=== PATIENT | female | born 1990 | race American Indian/Alaskan Native ===

== ENCOUNTER 2017-04-24 11:30 | Emergency (ER) | payer MEDICAID ==
[2017-04-24 13:16] LABS: Anion Gap 18 mmol/L; BUN/Creatinine Ratio 24; Blood Urea Nitrogen 12 mg/dL (7-17); Calcium 9.1 mg/dL (8.4-10.2); Carbon Dioxide 26 mmol/L (22-30); Chloride 101.1 mmol/L (98-107); Glucose 89 mg/dL (65-100); Potassium 4.4 mmol/L (3.6-5.0); Sodium 141 mmol/L (137-145)
[2017-04-24 13:19] LABS: Basophils % (Auto) 0.6 % (0.0-1.8); Hematocrit 36.3 % (30.3-42.9); Mean Corpuscular HGB Conc 33 % (30-34); Mean Corpuscular Hemoglobin 28 pg (28-32); Mean Corpuscular Volume 84 fl (79-97); Platelet Count 306 K/mm3 (140-440); Red Blood Count 4.35 M/mm3 (3.65-5.03); Red Cell Distribution Width 13.9 % (13.2-15.2); White Blood Count 12.8 K/mm3 (4.5-11.0)
[2017-04-24] MEDS ORDERED: ESKALITH PO ONE ×2 (13:53)
[2017-04-24] MEDS ORDERED: GEODON PO ONE (13:54)
[2017-04-24] MEDS ORDERED: MOTRIN PO ONE (13:56)
[2017-04-24 14:07] LABS: Urine Drugs of Abuse Note Disclamer
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
--- NOTE | 2017-04-24 14:15 | Consultation ---
History of Present Illness - Reason for Consult Reason for consult: disorganized Medications and Allergies Allergies Allergy/AdvReac Type Severity Reaction Status Date / Time No Known Allergies Allergy Verified 04/24/17 11:38 Home Medications Medication Instructions Recorded Confirmed Last Taken Type Paliperidone Palmitate (Nf) 156 mg IM Q2W 06/07/15 05/06/16 05/24/15 History [Invega Sustenna (Nf)] Benadryl CAP 50 mg IM HS PRN 05/06/16 05/06/16 Unknown History Wyocena Carbonate 300 mg PO DAILY 05/06/16 05/06/16 Unknown History Wyocena Carbonate 600 mg PO HS 05/06/16 05/06/16 Unknown History Active Meds: Active Medications Ziprasidone (Geodon) 20 mg PO BID CHAI Mental Status Exam - Vital signs Last Vital Signs Temp 97.7 F 04/24/17 11:38 Pulse 99 H 04/24/17 11:38 Resp 18 04/24/17 11:38 BP 168/73 04/24/17 11:38 Pulse Ox 100 04/24/17 11:38 Results Result Diagrams: 04/24/17 11:49 04/24/17 11:49 Abnormal lab results 04/24/17 04/24/17 Range/Units 11:49 11:49 WBC 12.8 H (4.5-11.0) K/mm3 [place] % (Auto) 8.3 H (0.0-7.3) % [place] # 1.1 H (0.0-0.8) K/mm3 Seg Neutrophils % 73.8 H (40.0-70.0) % Seg Neutrophils # 9.5 H (1.8-7.7) K/mm3 Creatinine 0.5 L (0.7-1.2) mg/dL All other labs normal. Assessment and Plan Assessment and plan: CHIEF COMPLAINT IN PATIENTS WORDS: HISTORY OF PRESENT ILLNESS REQUIRING ADMISSION TO INPATIENT LEVEL OF CARE: (Describe the onset of Illness, Intensity of Symptoms, and Circumstances Leading to Admission) This is a 26 year-old domiciled female who reports a formal PPH bipolar disorder now presenting to the ER secondary to disorganized behaviors. On my clinical assessment, patient noted that she has been on intent her medication. Patient notes that she supposed to get a shot of Invega Sustenna as well as lithium, Depakote and Geodon. [place] [facility]. Your doctor contacted the patient's windows phone developer to verify the reason for presentation. PSYCHIATRIC REVIEW OF SYSTEMS: Substance: UDS unavailable Depression: Withdrawn, sad low moods, irritable Dorothea: Periodically irritable Psychosis: + AV, no VH, disorganized, perseverative, paranoid Anxiety/ OCD/ PTSD: Frequent anxiety and worries Suicidality: denies SI Other Self-Injurious Behavior: none currently, no SIB noted recently Violent/ Aggressive Behavior: none noted CURRENT MEDICATIONS: ( Psychiatric and Non-psychiatric ) Medication Reconciliation needs to be completed with windows phone developer or pharmacy ALLERGIES: NKDA PAST PSYCHIATRIC HISTORY: ( Prior Treatment, Precipitating Factors, Diagnosis, and Course of Treatment ) Inpatient: previous IP, but doesn't recall Outpatient: unknown to patient, likely ACT team Prior Suicide Attempts: unknown Prior Self-Injurious Behaviors: Unknown PAST PSYCHIATRIC MEDICATION TRIALS: Geodon, Wyocena, Invega, Depakote MEDICAL HISTORY: (Chronic and Acute Illnesses, Current Medical Treatment, Recent Hospitalizations) Denies Detoxification / Withdrawal: none noted MENTAL STATUS EXAM: General Appearance: Dressed in hospital gown, no acute distress Sensorium/Consciousness: Mostly alert but somewhat sedated Eye Contact: limited Attitude / Behavior: cooperative, but guarded Psychomotor & Musculoskeletal Activity: Psychomotor agitation Mood: Depressed Affect: constricted Speech / Language: Not slurred, reduced spontaneity but fluent when speaking Thought Processes: Perseverative Thought Content: denies SI/HI Perception: no AVH Orientation: person, place, time, situation Judgment What would you do if you smelled smoke in a crowded movie theater?: poor/impulsive Insight: poor Intelligence Vocabulary, general fund of knowledge, educational level: Average Capacity of ADLs: Independent ADMITTING DIAGNOSES Psychiatric: Bipolar disorder most recent episode depressed with psychotic features r/o Schizophrenia Evidence for the following: Medical: n/a INITIAL PLAN OF CARE AND TREATMENT GOALS: Refer for inpatient psychiatric care Start Risperidone and transition to invega when more information is available about last does from windows phone developer
[2017-04-24 14:22] LABS: Bilirubin,Urine NEG (Negative); Blood,Urine NEG (Negative); Ketones,Urine NEG (Negative); Leukocyte Esterase,Urine TR (Negative); Mucus,Urine FEW /HPF; Nitrite,Urine NEG (Negative); Protein,Urine <15 mg/dL mg/dL (Negative)
[2017-04-24] MEDS: RisperDAL PO SCH (21:50)
[2017-04-24] MEDS: ESKALITH PO SCH (21:50)
[2017-04-24] MEDS ORDERED: GEODON PO SCH (22:00)
[2017-04-25] MEDS: ESKALITH PO SCH ×2 (10:29→19:44)
--- NOTE | 2017-04-25 19:37 | Progress Note ---
Subjective - Reason for Consult Consult date: 04/25/17 Reason for consult: psychiatric follow up Mental Status Exam - Vital signs Last Vital Signs Temp 98.4 F 04/25/17 08:07 Pulse 85 04/25/17 08:07 Resp 20 04/25/17 08:09 BP 151/76 04/25/17 08:07 Pulse Ox 99 04/25/17 08:09 Assessment and Plan This is a 26 year-old domiciled female who reports a formal PPH bipolar disorder now presenting to the ER secondary to disorganized behaviors. Patient notes that she supposed to get a shot of Invega Sustenna as well as lithium, Depakote and Geodon. She currently resides in a [facility]. She is perseverative about going home. She denies concerns today. She has not displayed aggressive behaviors. She is maintaining appropriate interaction with peers and staff. She reports having a large appetite and wants double portions. MENTAL STATUS EXAM: General Appearance: Dressed in hospital gown, no acute distress Sensorium/Consciousness: alert Eye Contact: limited Attitude / Behavior: cooperative, but guarded Psychomotor & Musculoskeletal Activity: no abnormal movements Mood: Depressed Affect: constricted Speech / Language: normal rate and tone Thought Processes: Perseverative Thought Content: denies SI/HI Perception: no AVH Orientation: person, place, time, situation Judgment: poor/impulsive Insight: poor Intelligence: Average Capacity of ADLs: Independent ADMITTING DIAGNOSES Psychiatric: Bipolar disorder most recent episode depressed with psychotic features r/o Schizophrenia INITIAL PLAN OF CARE AND TREATMENT GOALS: Refer for inpatient psychiatric care Continue Risperidone and transition to invega when more information is available about last does from email marketing executive
[2017-04-25] MEDS: RisperDAL PO SCH (21:44)
[2017-04-26] MEDS: ESKALITH PO SCH ×2 (10:00→18:43)
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
[2017-04-26] MEDS: RisperDAL PO SCH (22:06)
--- NOTE | 2017-04-27 10:13 | Progress Note ---
Subjective - Reason for Consult Consult date: 04/27/17 Reason for consult: Psychiatry Follow-up - Chief Complaint Chief complaint: "'Can I leave today" This is a 26 year-old domiciled female who reports a formal PPH bipolar disorder now presenting to the ER secondary to disorganized behaviors. Today patient is calm and cooperative during the assessment. She stated that she reside in [place], [place]. Per the staff, no behavioral disturbances overnight. Patient denies SI/HI's and AVH's. She denies any side effects of her medications. Per collateral information from [facility], patient last Invega injection was December 2016. Mental Status Exam - Vital signs Last Vital Signs Temp 98.4 F 04/27/17 08:25 Pulse 86 04/27/17 08:25 Resp 20 04/27/17 08:26 BP 126/84 04/27/17 08:25 Pulse Ox 100 04/27/17 08:26 - Exam Narrative exam: MSE: Appearance: calm, cooperative Behavior: regular eye contact Speech: regular rate and tone Mood: "okay" Affect: congruent to mood Thought Process: linear Thought Content: denies SI/HI's and AVH's Motor Activity: ambulatory Cognition: A/O x3 Insight: fair Judgment: fair Assessment and Plan Impression: Bipolar disorder most recent episode depressed with psychotic features. Today patient is calm and cooperative during the assessment. DDx: R/O Schizophrenia Recommendation/Plan: Rescind 1013. Continue Risperdal 1 mg PO HS for mood, [place] 300 mg PO QAM for mood, and [place] 600 mg PO QPM for mood. Discussed possible metabolic side effects of Risperdal with patient. Per conversation with Estefani Leung her major account representative at [phone], patient can return back to the alf once discharged. Patient can follow up with [facility] ([facility]) for outpatient psy services in [place], [place] at [phone] ext [phone]. This information was passed to her caregiver Estefani Leung.
[2017-04-27] MEDS: ESKALITH PO SCH ×2 (11:12→18:22)
--- NOTE | 2017-04-27 20:39 | Emergency Department Report ---
Blank Doc - Documentation Documentation: Patient has been in the ED for several days and has received multiple psychiatric consultations. Patient is apparently more organized and cooperative and denies suicidal/homicidal ideation and visual hallucinations. 1013 will be presented as per recommendation of psychiatry. Will continue medications as recommended by psych.
[2017-04-27] MEDS: RisperDAL PO SCH (23:05)
[2017-04-28 09:03] VITALS: BP 131/70
[2017-04-28] MEDS: ESKALITH PO SCH (10:02)
--- NOTE | 2017-04-28 22:33 | Progress Note ---
Subjective - Reason for Consult Reason for consult: recent disorganied behaviors Mental Status Exam - Vital signs Last Vital Signs Temp 97.9 F 04/28/17 09:02 Pulse 93 H 04/28/17 09:02 Resp 18 04/28/17 09:02 BP 131/70 04/28/17 09:02 Pulse Ox 97 04/28/17 09:02 Assessment and Plan I. This screening and assessment is based on information collected from the following sources: II. SUICIDE RISK SCREENING (within last 30 days): A.) Suicidal thoughts/behaviors: recent disorganized behaviors SUICIDE RISK ASSESSMENT III. FACTORS THAT INCREASE RISK: A.) Demographic and Substance Use Factors: B.) Current/Recent Factors (within past 3 months): Psychosocial/Environmental Factors: unemployed Physical Illness: None Cognitive/Psychological Factors: chronic mental illness C.) Historical Factors: none D.) Diagnostic/Symptom/Treatment Factors: None E.) Acute Risk Factor Severity (DESC; MILD/MOD/SEVERE) mild Other factors for this individual that increase risk: IV. FACTORS THAT DECREASE RISK: Resilience/Protective Factors: Intermittent psychosocial supports Other factors for this individual that decrease risk: Patient reports he is future oriented and currently denying a desire to harm self. V. Clinician's Formulation of Risk and Determination of level of Care: Patient is having both chronic and acute stressors which have brought him to the ER. Just prior to the ER presentation patient reports feeling overwhelmed and stressed. Since being hospitalized, the patient has consistently denied the desire to harm self. Patient has been in the ER for over 48 hours and has not shown any gestures and consistently denied desire to harm himself. Additionally, patient has become insightful and aware of how to resolve the specific interpersonal conflict they are having. Consequently, it is the opinion of the treatment team that the patient is at low risk at the current time given the above interventions that were implemented in his care. Estimation of Imminent Risk: Low due to the above explanation Determination of Level of Care based on Suicide Risk: Outpatient follow-up. Furthermore, patient has had consistently denied the desire to harm self. Additionally, those thoughts were impulsive and not instrumental in nature to begin with and the patient had no intent or clear plan to execute on those thoughts. Narrative description of clinical reasoning. (This must be completed on all patients): . Plan and Interventions based on Suicide Risk: This patient will likely be stepped down to an outpatient mental health center in the community upon discharge and follow-up within 7 days of his discharge from the hospital. VII. Discharge/After Hours Support Plan: Patient can return back to the ER, call 911 or crisis line if symptoms of depression, anxiety, suicidality return. MENTAL STATUS EXAM: General Appearance: Dressed in hospital gown, no acute distress Sensorium/Consciousness: Mostly alert but somewhat sedated Eye Contact: limited Attitude / Behavior: cooperative, but guarded Psychomotor & Musculoskeletal Activity: wnl Mood: Depressed Affect: constricted Speech / Language: Not slurred, reduced spontaneity but fluent when speaking Thought Processes: Perseverative Thought Content: denies SI/HI Perception: no AVH Orientation: person, place, time, situation Judgment What would you do if you smelled smoke in a crowded movie theater?: improved Insight: improved Intelligence Vocabulary, general fund of knowledge, educational level: Average Capacity of ADLs: Independent ADMITTING DIAGNOSES Psychiatric: Bipolar disorder most recent episode depressed with psychotic features r/o Schizophrenia Evidence for the following: Medical: n/a INITIAL PLAN OF CARE AND TREATMENT GOALS: Outpatient care coordinated and plan has been communicated with the personal senior care [id number]
== END 2017-04-28 15:28 | disposition home or self-care (01) ==
LOC: EEVIPCON 11:30 → ED 11:30
DX: F20.9 Schizophrenia, unspecified (principal); F31.9 Bipolar disorder, unspecified; Z91.14 Patient's other noncompliance with medication regimen; Z87.891 Personal history of nicotine dependence
CPT/HCPCS: 36415; 80048; 80178; 80307; 81001; 84703; 85025; 99284; G0480; 80320

== ENCOUNTER 2017-07-11 16:55 | Emergency (ER) | payer MEDICAID ==
[2017-07-11] MEDS ORDERED: GEODON IM ONE ×2 (17:46→18:16)
[2017-07-11] MEDS ORDERED: WATER FOR INJ (PF) 10 ML ONE (17:47)
[2017-07-11] MEDS ORDERED: ATIVAN ONE ×2 (17:48→18:07)
[2017-07-11] MEDS ORDERED: ATIVAN IM ONE (18:15)
[2017-07-11 19:10] LABS: Basophils # (Auto) 0.1 K/mm3 (0.0-0.1); Basophils % (Auto) 0.8 % (0.0-1.8); Eosinophils # (Auto) 0.2 K/mm3 (0.0-0.4); Eosinophils % (Auto) 1.4 % (0.0-4.3); Hematocrit 39.7 % (30.3-42.9); Hemoglobin 12.3 gm/dl (10.1-14.3); Lymphocytes # (Auto) 2.3 K/mm3 (1.2-5.4); Lymphocytes % (Auto) 20.2 % (13.4-35.0); Mean Corpuscular HGB Conc 31 % (30-34); Mean Corpuscular Hemoglobin 26 pg (28-32); Mean Corpuscular Volume 85 fl (79-97); Monocytes # (Auto) 0.8 K/mm3 (0.0-0.8); Monocytes % (Auto) 6.6 % (0.0-7.3); Platelet Count 303 K/mm3 (140-440); Red Blood Count 4.66 M/mm3 (3.65-5.03); Red Cell Distribution Width 13.6 % (13.2-15.2)
[2017-07-11 19:32] LABS: Alanine Aminotransferase 49 units/L (7-56); Albumin 4.3 g/dL (3.9-5); BUN/Creatinine Ratio 23; Blood Urea Nitrogen 14 mg/dL (7-17); Calcium 9.6 mg/dL (8.4-10.2); Hemolysis Index 4
--- NOTE | 2017-07-11 19:52 | Emergency Department Report ---
ED Psych HPI - General Chief Complaint: Psych Stated Complaint: PSYCH MEDS Time Seen by Provider: 07/11/17 19:37 Source: family, EMS Mode of arrival: Ambulatory - History of Present Illness Initial Comments: Patient is a 27-year-old female who had past history of bipolar disorder who was sent in from her group all for behavior issues. Patient states that she one of her nurses is is jealous of her and states that she is not taking her medications when she states that she is. Patient has received a dose of Ativan and Geodon before her arrival. Patient states she feels better currently. Patient denies any homicidal suicidal ideations or any pain - Related Data Home Medications Medication Instructions Recorded Confirmed Last Taken Paliperidone Palmitate (Nf) 156 mg IM Q2W 06/07/15 04/24/17 05/24/15 [Invega Sustenna (Nf)] Benadryl CAP 50 mg IM HS PRN 05/06/16 04/24/17 Unknown [place] Carbonate 300 mg PO DAILY 05/06/16 04/24/17 Unknown [place] Carbonate 600 mg PO HS 05/06/16 04/24/17 Unknown Previous Rx's Medication Instructions Recorded Last Taken Type [place] Carbonate [Eskalith] 300 mg PO QAM #30 capsule 04/27/17 Unknown Rx [place] Carbonate [Eskalith] 600 mg PO QPM #30 capsule 04/27/17 Unknown Rx risperiDONE [RisperDAL] 1 mg PO QHS #30 tablet 04/27/17 Unknown Rx Allergies Allergy/AdvReac Type Severity Reaction Status Date / Time No Known Allergies Allergy Verified 04/24/17 11:38 ED Review of Systems ROS: Stated complaint: PSYCH MEDS Other details as noted in HPI Comment: All other systems reviewed and negative ED Past Medical Hx - Past Medical History Hx Psychiatric Treatment: Yes ([facility]) - Surgical History Past Surgical History?: No - Social History Smoking Status: Never Smoker Substance Use Type: Prescribed - Medications Home Medications: Home Medications Medication Instructions Recorded Confirmed Last Taken Type Paliperidone Palmitate (Nf) 156 mg IM Q2W 06/07/15 04/24/17 05/24/15 History [Invega Sustenna (Nf)] Benadryl CAP 50 mg IM HS PRN 05/06/16 04/24/17 Unknown History [place] Carbonate 300 mg PO DAILY 05/06/16 04/24/17 Unknown History [place] Carbonate 600 mg PO HS 05/06/16 04/24/17 Unknown History [place] Carbonate [Eskalith] 300 mg PO QAM #30 capsule 04/27/17 Unknown Rx [place] Carbonate [Eskalith] 600 mg PO QPM #30 capsule 04/27/17 Unknown Rx risperiDONE [RisperDAL] 1 mg PO QHS #30 tablet 04/27/17 Unknown Rx ED Physical Exam - General Limitations: No Limitations General appearance: alert, in no apparent distress - Head Head exam: Present: atraumatic, normocephalic - Eye Eye exam: Present: normal appearance - ENT ENT exam: Present: mucous membranes moist - Neck Neck exam: Present: normal inspection - Respiratory Respiratory exam: Present: normal lung sounds bilaterally. Absent: respiratory distress - Cardiovascular Cardiovascular Exam: Present: regular rate, normal rhythm. Absent: systolic murmur, diastolic murmur, rubs, gallop - GI/Abdominal GI/Abdominal exam: Present: soft, normal bowel sounds - Extremities Exam Extremities exam: Present: normal inspection - Back Exam Back exam: Present: normal inspection - Neurological Exam Neurological exam: Present: alert, oriented X3 - Psychiatric Psychiatric exam: Present: normal affect, normal mood - Skin Skin exam: Present: warm, dry, intact, normal color. Absent: rash ED Course Vital Signs 07/11/17 17:16 Temperature 97.8 F Pulse Rate 111 H Respiratory 18 Rate Blood Pressure 142/81 [Right] O2 Sat by Pulse 98 Oximetry ED Medical Decision Making - Lab Data Result diagrams: 07/11/17 18:41 07/11/17 18:41 Critical care attestation.: If time is entered above; I have spent that time in minutes in the direct care of this critically ill patient, excluding procedure time. ED Disposition Condition: Stable Referrals: ZACK HENDERSON MD [Primary Care Provider] - 3-5 Days
[2017-07-11 20:40] LABS: Bacteria,Urine 1+ /HPF (Negative); Bilirubin,Urine NEG (Negative); Blood,Urine NEG (Negative); Color,Urine Straw (Yellow); Mucus,Urine FEW /HPF; Nitrite,Urine NEG (Negative); Protein,Urine <15 mg/dL mg/dL (Negative); Urobilinogen,Urine < 2.0 mg/dL (<2.0)
[2017-07-11 20:45] LABS: Amphetamine Screen,Urine PRESUMPTIVE NEGATIVE; Benzodiazepines Screen,Urine PRESUMPTIVE NEGATIVE; Cannabinoid Screen,Urine PRESUMPTIVE NEGATIVE; Cocaine Screen,Urine PRESUMPTIVE NEGATIVE; Methadone Screen,Urine PRESUMPTIVE NEGATIVE; Opiate Screen,Urine PRESUMPTIVE NEGATIVE
--- NOTE | 2017-07-12 12:42 | Consultation ---
History of Present Illness - Reason for Consult Consult date: 07/12/17 Reason for consult: Mental Health Evaluation Requesting physician: FRANKLIN RAY - Chief Complaint Chief complaint: "I was upset" - History of Present Psychiatric Illness Patient is a 27-year-old female who had past history of bipolar disorder who was sent in from her group all for behavior issues. Today patient is calm and cooperative during the assessment. She stated that she got upset at her care home and decided to come to the hospital to calm down. Per collateral information from Estefani at [phone] the patient airport ramp attendant, she stated that the patient got upset because she could not cook all the food. She stated that the patient does not like to hear the word "No." She denies that the patient was SI/HI before she left the care home. The patient stated that she receives the monthly Invega injection for Bipolar DO from [facility] ([facility]). Per a rep from [facility], the patient received her last injection 2 weeks ago. Per the staff, no behavioral disturbance overnight nor this shift. She denies SI /HI's and AVH's. She denies any manic episodes, poor appetite, and sleep disturbance. She denies recreational drug use and alcohol consumption (etoh). Medications and Allergies Allergies Allergy/AdvReac Type Severity Reaction Status Date / Time No Known Allergies Allergy Verified 04/24/17 11:38 Home Medications Medication Instructions Recorded Confirmed Last Taken Type Paliperidone Palmitate (Nf) 156 mg IM Q2W 06/07/15 04/24/17 05/24/15 History [Invega Sustenna (Nf)] Benadryl CAP 50 mg IM HS PRN 05/06/16 04/24/17 Unknown History [place] Carbonate 300 mg PO DAILY 05/06/16 04/24/17 Unknown History [place] Carbonate 600 mg PO HS 05/06/16 04/24/17 Unknown History [place] Carbonate [Eskalith] 300 mg PO QAM #30 capsule 04/27/17 Unknown Rx [place] Carbonate [Eskalith] 600 mg PO QPM #30 capsule 04/27/17 Unknown Rx risperiDONE [RisperDAL] 1 mg PO QHS #30 tablet 04/27/17 Unknown Rx Past psychiatric history - Past Medical History Past Medical History: No medical history Past Surgical History: No surgical history - past Psychiatric treatment and history Psych: Bipolar psychiatric treatment history: Patient seen out patient by [facility] ([facility]). Patient denies a fam psy hx. - Social History Social history: other (Reside at a care home) Mental Status Exam - Vital signs Last Vital Signs Temp 98 F 07/11/17 20:01 Pulse 88 07/12/17 00:00 Resp 18 07/12/17 00:00 BP 134/88 07/12/17 00:00 Pulse Ox 99 07/12/17 00:00 - Exam Narrative exam: MSE: Appearance: calm, cooperative Behavior: good eye contact Speech: regular rate and tone Mood: "okay" Affect: congruent to mood Thought Process: linear Thought Content: denies SI/HI's and AVH's Motor Activity: ambulatory Cognition: A/O x 3 Insight: fair Judgment: fair Results Result Diagrams: 07/11/17 18:41 07/11/17 18:41 Abnormal lab results 07/11/17 07/11/17 07/11/17 Range/Units 18:41 18:41 18:41 WBC 11.5 H (4.5-11.0) K/mm3 MCH 26 L (28-32) pg Seg Neutrophils % 71.0 H (40.0-70.0) % Seg Neutrophils # 8.2 H (1.8-7.7) K/mm3 Chloride 97.3 L (98-107) mmol/L Creatinine 0.6 L (0.7-1.2) mg/dL Glucose 116 H (65-100) mg/dL Salicylates < 0.3 L (2.8-20.0) mg/dL All other labs normal. Assessment and Plan Assessment and plan: Impression: Hx of Bipolar DO. Today patient is calm and cooperative during the assessment. Recommendation/Plan: Patient can follow-up with [facility] for outpatient psy services. Patient does not need any prescriptions once discharged.
[2017-07-12 18:48] VITALS: BP 128/74
== END 2017-07-12 18:55 | disposition home or self-care (01) ==
LOC: ED 16:55 → EEVIPCON 16:55 → ED 07-12 18:55
DX: F31.9 Bipolar disorder, unspecified (principal)
CPT/HCPCS: 36415; 80053; 80178; 80307; 81001; 84703; 85025; 96372; 99283; G0480; J2060; J3486; 80320

== ENCOUNTER 2017-08-05 16:44 | Emergency (ER) | payer MEDICAID ==
[2017-08-05 17:39] LABS: Basophils # (Auto) 0.1 K/mm3 (0.0-0.1); Basophils % (Auto) 0.7 % (0.0-1.8); Eosinophils # (Auto) 0.1 K/mm3 (0.0-0.4); Eosinophils % (Auto) 1.1 % (0.0-4.3); Hematocrit 42.2 % (30.3-42.9); Hemoglobin 13.3 gm/dl (10.1-14.3); Lymphocytes % (Auto) 20.5 % (13.4-35.0); Mean Corpuscular HGB Conc 32 % (30-34); Mean Corpuscular Hemoglobin 27 pg (28-32); Mean Corpuscular Volume 85 fl (79-97); Monocytes # (Auto) 0.4 K/mm3 (0.0-0.8); Monocytes % (Auto) 3.9 % (0.0-7.3); Platelet Count 304 K/mm3 (140-440); Red Blood Count 4.98 M/mm3 (3.65-5.03); Red Cell Distribution Width 13.4 % (13.2-15.2)
[2017-08-05 17:56] LABS: BUN/Creatinine Ratio 17; Blood Urea Nitrogen 10 mg/dL (7-17); Calcium 9.4 mg/dL (8.4-10.2); Hemolysis Index 26
--- NOTE | 2017-08-05 18:32 | Emergency Department Report ---
ED Psych HPI - General Chief Complaint: Psych Stated Complaint: MH/101 Time Seen by Provider: 08/05/17 17:09 Source: patient Mode of arrival: Ambulatory - History of Present Illness Initial Comments: She is a 27-year-old Female with a past medical history of schizophrenia and bipolar disorder who is presenting with tear was to call's and homicidal ideations. Patient is at a group called and got into an argument with the senior living. Patient's caregiver wanted her to be evaluated here in emergency department for violent outbreaks. Patient initially stated that she just wanted to go to the police department and press charges and that she wanted to go home and was not homicidal or suicidal however the patient then as stated "I want to go back to the home and is gonna be round two". Patient denies any hallucinations or suicidal thoughts. - Related Data Home Medications Medication Instructions Recorded Confirmed Last Taken Paliperidone Palmitate (Nf) 156 mg IM Q2W 06/07/15 04/24/17 05/24/15 [Invega Sustenna (Nf)] Benadryl CAP 50 mg IM HS PRN 05/06/16 04/24/17 Unknown [place] Carbonate 300 mg PO DAILY 05/06/16 04/24/17 Unknown [place] Carbonate 600 mg PO HS 05/06/16 04/24/17 Unknown Previous Rx's Medication Instructions Recorded Last Taken Type [place] Carbonate [Eskalith] 300 mg PO QAM #30 capsule 04/27/17 Unknown Rx [place] Carbonate [Eskalith] 600 mg PO QPM #30 capsule 04/27/17 Unknown Rx risperiDONE [RisperDAL] 1 mg PO QHS #30 tablet 04/27/17 Unknown Rx Allergies Allergy/AdvReac Type Severity Reaction Status Date / Time No Known Allergies Allergy Verified 04/24/17 11:38 ED Review of Systems ROS: Stated complaint: Other details as noted in HPI Comment: All other systems reviewed and negative ED Past Medical Hx - Past Medical History Hx Psychiatric Treatment: Yes ([facility]) - Social History Smoking Status: Former Smoker Substance Use Type: Prescribed - Medications Home Medications: Home Medications Medication Instructions Recorded Confirmed Last Taken Type Paliperidone Palmitate (Nf) 156 mg IM Q2W 06/07/15 04/24/17 05/24/15 History [Invega Sustenna (Nf)] Benadryl CAP 50 mg IM HS PRN 05/06/16 04/24/17 Unknown History [place] Carbonate 300 mg PO DAILY 05/06/16 04/24/17 Unknown History [place] Carbonate 600 mg PO HS 05/06/16 04/24/17 Unknown History [place] Carbonate [Eskalith] 300 mg PO QAM #30 capsule 04/27/17 Unknown Rx [place] Carbonate [Eskalith] 600 mg PO QPM #30 capsule 04/27/17 Unknown Rx risperiDONE [RisperDAL] 1 mg PO QHS #30 tablet 04/27/17 Unknown Rx ED Physical Exam - General Limitations: No Limitations General appearance: alert, in no apparent distress, other (pressured speech) - Head Head exam: Present: atraumatic, normocephalic - Eye Eye exam: Present: normal appearance - ENT ENT exam: Present: mucous membranes moist - Neck Neck exam: Present: normal inspection - Respiratory Respiratory exam: Present: normal lung sounds bilaterally. Absent: respiratory distress, wheezes, rales, rhonchi - Cardiovascular Cardiovascular Exam: Present: regular rate, normal rhythm. Absent: systolic murmur, diastolic murmur, rubs, gallop - GI/Abdominal GI/Abdominal exam: Present: soft, normal bowel sounds. Absent: distended, tenderness, guarding - Extremities Exam Extremities exam: Present: normal inspection - Back Exam Back exam: Present: normal inspection - Neurological Exam Neurological exam: Present: alert, oriented X3 - Psychiatric Psychiatric exam: Present: normal affect, normal mood - Skin Skin exam: Present: warm, dry, intact, normal color. Absent: rash ED Course Vital Signs 08/05/17 08/05/17 17:09 18:04 Temperature 98.6 F Pulse Rate 112 H Respiratory 20 Rate Blood Pressure 156/89 O2 Sat by Pulse 97 98 Oximetry ED Medical Decision Making - Lab Data Result diagrams: 08/05/17 17:19 08/05/17 17:19 - Medical Decision Making Patient is a 27-year-old female who is having homicidal ideations as well as pressured speech and kartik patient will be evaluated by mental health and sent to a psych facility Critical care attestation.: If time is entered above; I have spent that time in minutes in the direct care of this critically ill patient, excluding procedure time. ED Disposition Clinical Impression: Homicidal ideation, Kartik Disposition: [id number]/[facility] PSY HOSP/PSY UNIT Is pt being admited?: No Does the pt Need Aspirin: No Condition: Stable Referrals: PRIMARY CARE, [Primary Care Provider] - 3-5 Days
[2017-08-05 21:05] LABS: Bilirubin,Urine NEG (Negative); Blood,Urine NEG (Negative); Color,Urine Yellow (Yellow); Mucus,Urine FEW /HPF; Nitrite,Urine NEG (Negative); Protein,Urine <15 mg/dL mg/dL (Negative)
[2017-08-05 21:32] LABS: Amphetamine Screen,Urine PRESUMPTIVE NEGATIVE; Benzodiazepines Screen,Urine PRESUMPTIVE NEGATIVE; Cannabinoid Screen,Urine PRESUMPTIVE NEGATIVE; Cocaine Screen,Urine PRESUMPTIVE NEGATIVE; Methadone Screen,Urine PRESUMPTIVE NEGATIVE; Opiate Screen,Urine PRESUMPTIVE NEGATIVE
[2017-08-06 08:33] VITALS: BP 143/74
== END 2017-08-06 08:36 ==
LOC: ED 16:44 → EEVIPCON 16:44 → ED 08-06 08:36
DX: R45.850 Homicidal ideations (principal); F30.9 Manic episode, unspecified; F20.9 Schizophrenia, unspecified
CPT/HCPCS: 36415; 80048; 80307; 81001; 84703; 85025; 99285; G0480; 80320

== ENCOUNTER 2017-09-15 14:36 | Emergency (ER) | payer MEDICAID | END 2017-09-15 15:12 | disposition left against medical advice (07) | LOC: ED 14:36 | DX: I10 Essential (primary) hypertension (principal); Z53.21 Procedure and treatment not carried out due to patient leaving prior to being seen by health care provider ==

== ENCOUNTER 2017-10-21 19:51 | Emergency (ER) | payer MEDICAID ==
--- NOTE | 2017-10-21 21:30 | Emergency Department Report ---
ED Psych HPI - General Chief Complaint: Psych Stated Complaint: MH EVAL Time Seen by Provider: 10/21/17 20:21 Source: patient, EMS Mode of arrival: Ambulatory - History of Present Illness Initial Comments: Patient is 27 years old female, history of schizophrenia and bipolar. Patient live in a [facility]. Patient refused to take her psychiatric medication and she made threats to the group sales representative that she is going to kill everyone. When I question outpatient denied saying that and she stated that her group worker want to get red of her so she can get her . Patient denied any suicidal or homicidal ideation at this moment. She denied unnecessary and visual hallucination. - Related Data Home Medications Medication Instructions Recorded Confirmed Last Taken Paliperidone Palmitate (Nf) 156 mg IM Q2W 06/07/15 08/05/17 05/24/15 [Invega Sustenna (Nf)] Benadryl CAP 50 mg IM HS PRN 05/06/16 08/05/17 Unknown [place] Carbonate 300 mg PO DAILY 05/06/16 08/05/17 Unknown [place] Carbonate 600 mg PO HS 05/06/16 08/05/17 Unknown Previous Rx's Medication Instructions Recorded Last Taken Type [place] Carbonate [Eskalith] 300 mg PO QAM #30 capsule 04/27/17 Unknown Rx [place] Carbonate [Eskalith] 600 mg PO QPM #30 capsule 04/27/17 Unknown Rx risperiDONE [RisperDAL] 1 mg PO QHS #30 tablet 04/27/17 Unknown Rx Allergies Allergy/AdvReac Type Severity Reaction Status Date / Time No Known Allergies Allergy Verified 04/24/17 11:38 ED Review of Systems ROS: Stated complaint: EVAL Other details as noted in HPI Comment: All other systems reviewed and negative Constitutional: denies: chills, fever Respiratory: denies: cough, orthopnea, shortness of breath, SOB with exertion Cardiovascular: denies: chest pain, palpitations, dyspnea on exertion ED Past Medical Hx - Past Medical History Hx Psychiatric Treatment: Yes ([facility]) - Social History Smoking Status: Former Smoker - Medications Home Medications: Home Medications Medication Instructions Recorded Confirmed Last Taken Type Paliperidone Palmitate (Nf) 156 mg IM Q2W 06/07/15 08/05/17 05/24/15 History [Invega Sustenna (Nf)] Benadryl CAP 50 mg IM HS PRN 05/06/16 08/05/17 Unknown History [place] Carbonate 300 mg PO DAILY 05/06/16 08/05/17 Unknown History [place] Carbonate 600 mg PO HS 05/06/16 08/05/17 Unknown History [place] Carbonate [Eskalith] 300 mg PO QAM #30 capsule 04/27/17 08/05/17 Unknown Rx [place] Carbonate [Eskalith] 600 mg PO QPM #30 capsule 04/27/17 08/05/17 Unknown Rx risperiDONE [RisperDAL] 1 mg PO QHS #30 tablet 04/27/17 08/05/17 Unknown Rx ED Physical Exam - General Limitations: No Limitations General appearance: alert, anxious - Head Head exam: Present: atraumatic, normocephalic, normal inspection - Eye Eye exam: Present: normal appearance, PERRL - ENT ENT exam: Present: normal exam, normal orophraynx - Neck Neck exam: Present: normal inspection - Respiratory Respiratory exam: Present: normal lung sounds bilaterally - Cardiovascular Cardiovascular Exam: Present: regular rate, normal rhythm, normal heart sounds - GI/Abdominal GI/Abdominal exam: Present: soft, normal bowel sounds. Absent: distended, tenderness, guarding, rebound, rigid, organomegaly, mass, bruit, pulsatile mass - Extremities Exam Extremities exam: Present: normal inspection, full ROM, normal capillary refill - Back Exam Back exam: Present: normal inspection, full ROM. Absent: CVA tenderness (R), CVA tenderness (L), muscle spasm, paraspinal tenderness - Neurological Exam Neurological exam: Present: alert, oriented X3, CN II-XII intact, normal gait - Psychiatric Psychiatric exam: Present: agitated, anxious, manic. Absent: homicidal ideation , suicidal ideation - Skin Skin exam: Present: warm ED Course Vital Signs 10/21/17 20:14 Temperature 98.1 F Pulse Rate 102 H Respiratory 18 Rate Blood Pressure 145/85 O2 Sat by Pulse 99 Oximetry ED Medical Decision Making - Lab Data Result diagrams: 10/21/17 21:19 10/21/17 21:19 Critical care attestation.: If time is entered above; I have spent that time in minutes in the direct care of this critically ill patient, excluding procedure time. ED Disposition Clinical Impression: Acute psychosis, Homicidal ideation Disposition: [id number]/[id number] PSY HOSP/PSY UNIT Is pt being admited?: No Condition: Stable Additional Instructions: Patient is medically clear to be admitted to inpatient psychiatric facility. Referrals: ZACK HENDERSON MD [Primary Care Provider] - 3-5 Days
[2017-10-21 21:35] LABS: Basophils # (Auto) 0.1 K/mm3 (0.0-0.1); Basophils % (Auto) 0.7 % (0.0-1.8); Eosinophils # (Auto) 0.1 K/mm3 (0.0-0.4); Eosinophils % (Auto) 1.2 % (0.0-4.3); Hematocrit 37.1 % (30.3-42.9); Hemoglobin 11.9 gm/dl (10.1-14.3); Mean Corpuscular HGB Conc 32 % (30-34); Mean Corpuscular Hemoglobin 28 pg (28-32); Mean Corpuscular Volume 86 fl (79-97); Monocytes % (Auto) 8.7 % (0.0-7.3); Platelet Count 280 K/mm3 (140-440); Red Blood Count 4.29 M/mm3 (3.65-5.03); Red Cell Distribution Width 15.1 % (13.2-15.2)
[2017-10-21 21:46] LABS: Alanine Aminotransferase 20 units/L (7-56); Albumin 3.7 g/dL (3.9-5); BUN/Creatinine Ratio 23; Blood Urea Nitrogen 16 mg/dL (7-17); Hemolysis Index 14
[2017-10-21 22:05] LABS: Bacteria,Urine 1+ /HPF (Negative); Bilirubin,Urine NEG (Negative); Blood,Urine NEG (Negative); Color,Urine Yellow (Yellow); Mucus,Urine 3+ /HPF; Protein,Urine <15 mg/dL mg/dL (Negative)
[2017-10-21 22:07] LABS: Amphetamine Screen,Urine PRESUMPTIVE NEGATIVE; Benzodiazepines Screen,Urine PRESUMPTIVE NEGATIVE; Cannabinoid Screen,Urine PRESUMPTIVE NEGATIVE; Cocaine Screen,Urine PRESUMPTIVE NEGATIVE; Methadone Screen,Urine PRESUMPTIVE NEGATIVE; Opiate Screen,Urine PRESUMPTIVE NEGATIVE
[2017-10-22 11:02] VITALS: BP 125/80
== END 2017-10-22 10:00 ==
LOC: ED 19:51
DX: F23 Brief psychotic disorder (principal); R45.850 Homicidal ideations
CPT/HCPCS: 36415; 80053; 80307; 81001; 84703; 85025; 99285; G0480; 80320

== ENCOUNTER 2019-01-31 10:11 | Inpatient (IN) | payer MEDICAID ==
[2019-01-31] MEDS ORDERED: NACL 0.9% 1000 ML 1,000 ML IV ONE ×2 (10:42→12:20)
[2019-01-31 11:23] LABS: Basophils % (Auto) 0.4 % (0.0-1.8); Eosinophils % (Auto) 0.4 % (0.0-4.3); Hemoglobin 12.5 gm/dl (10.1-14.3); Lymphocytes # (Auto) 1.7 K/mm3 (1.2-5.4); Lymphocytes % (Auto) 16.5 % (13.4-35.0); Mean Corpuscular HGB Conc 33 % (30-34); Mean Corpuscular Volume 90 fl (79-97); Monocytes # (Auto) 1.1 K/mm3 (0.0-0.8); Monocytes % (Auto) 10.4 % (0.0-7.3); Platelet Count 183 K/mm3 (140-440); Red Cell Distribution Width 14.6 % (13.2-15.2)
[2019-01-31 11:41] LABS: BUN/Creatinine Ratio 14; Blood Urea Nitrogen 7 mg/dL (7-17); Calcium 9.5 mg/dL (8.4-10.2); Hemolysis Index 93
[2019-01-31 11:47] LABS: Bilirubin,Urine NEG (Negative); Blood,Urine NEG (Negative); Color,Urine Amber (Yellow); Mucus,Urine 1+ /HPF; Protein,Urine <15 mg/dL mg/dL (Negative)
[2019-01-31 11:54] LABS: Amphetamine Screen,Urine PRESUMPTIVE NEGATIVE; Benzodiazepines Screen,Urine PRESUMPTIVE NEGATIVE; Cannabinoid Screen,Urine PRESUMPTIVE NEGATIVE; Cocaine Screen,Urine PRESUMPTIVE NEGATIVE; Methadone Screen,Urine PRESUMPTIVE NEGATIVE; Opiate Screen,Urine PRESUMPTIVE NEGATIVE
--- NOTE | 2019-01-31 12:21 | Emergency Department Report ---
ED Altered Mental Status HPI - General Chief Complaint: Weakness Stated Complaint: FATIGUE/BODY PAIN Time Seen by Provider: 01/31/19 10:36 Source: patient Mode of arrival: Ambulatory Limitations: No Limitations - History of Present Illness Initial Comments: Gerri is a 28-year-old female with history of bipolar disorder, schizophrenia who presents from residential personal home with altered mental status. Yesterday she was evaluated for symptoms related to flulike illness. After coming home from school yesterday, she appeared dazed out of it lethargic. She is normally quite verbal. However she at this time is nonverbal. She appears lethargic. Caregiver at the bedside states that she's had diarrhea body aches and productive cough. No changes in her medications. Caregiver has taken care of Mrs. Bravo for the past 2 years. Medications are locked. Her caregiver administers all her medications. No new changes in her medications. There are 2 sick contacts in the residential home with similar symptoms diarrhea malaise bodyaches cough, Including her roommate. Home medications, [place] Risperidone InVega Valproic acid Benztrtessieine Complaint: altered mental status, confusion, decreased responsiveness -: Gradual, days(s) (1) Severity: severe Consistency of Symptoms: getting worse - Related Data Home Medications Medication Instructions Recorded Confirmed Last Taken Paliperidone Palmitate (Nf) 156 mg IM Q2W 06/07/15 01/31/19 05/24/15 [Invega Sustenna (Nf)] Benztropine [Cogentin] 0.5 mg PO BID 01/31/19 01/31/19 Unknown Divalproex ER [DepaKOTE ER] 500 mg PO QDAY 01/31/19 01/31/19 Unknown [place] Carbonate [Eskalith] 450 mg PO QAM 01/31/19 01/31/19 Unknown risperiDONE [RisperDAL] 3 mg PO QHS 01/31/19 01/31/19 Unknown Allergies Allergy/AdvReac Type Severity Reaction Status Date / Time No Known Allergies Allergy Verified 04/24/17 11:38 ED Review of Systems ROS: Stated complaint: FATIGUE/BODY PAIN Other details as noted in HPI Comment: Unobtainable due to pts medical conditions (altered mental status) ED Past Medical Hx - Past Medical History Previous Medical History?: Yes Hx Psychiatric Treatment: Yes (Schizophrenia, BiPolar) - Surgical History Past Surgical History?: No - Social History Smoking Status: Smoker, Current Status Unknown Substance Use Type: None - Medications Home Medications: Home Medications Medication Instructions Recorded Confirmed Last Taken Type Paliperidone Palmitate (Nf) 156 mg IM Q2W 06/07/15 01/31/19 05/24/15 History [Invega Sustenna (Nf)] Benztropine [Cogentin] 0.5 mg PO BID 01/31/19 01/31/19 Unknown History Divalproex ER [DepaKOTE ER] 500 mg PO QDAY 01/31/19 01/31/19 Unknown History [place] Carbonate [Eskalith] 450 mg PO QAM 01/31/19 01/31/19 Unknown History risperiDONE [RisperDAL] 3 mg PO QHS 01/31/19 01/31/19 Unknown History ED Physical Exam - General Limitations: No Limitations General appearance: alert, lethargic, other (maintaining airway, purposeful movement, only moans and grunts will not speak) - Head Head exam: Present: atraumatic, normocephalic - Eye Eye exam: Present: normal appearance - ENT ENT exam: Present: mucous membranes moist - Neck Neck exam: Present: normal inspection, full ROM - Respiratory Respiratory exam: Present: normal lung sounds bilaterally. Absent: respiratory distress, wheezes, rales, rhonchi - Cardiovascular Cardiovascular Exam: Present: regular rate, normal rhythm, normal heart sounds. Absent: systolic murmur, diastolic murmur, rubs, gallop - GI/Abdominal GI/Abdominal exam: Present: soft, normal bowel sounds. Absent: distended, tenderness, guarding - Extremities Exam Extremities exam: Present: normal inspection - Back Exam Back exam: Present: normal inspection - Neurological Exam Neurological exam: Present: alert, oriented X3 - Psychiatric Psychiatric exam: Present: normal affect, normal mood - Skin Skin exam: Present: warm, dry, intact, normal color. Absent: rash ED Course Vital Signs 01/31/19 01/31/19 01/31/19 10:22 11:11 11:16 Temperature 98.4 F Pulse Rate 77 78 Respiratory 12 12 Rate Blood Pressure 127/82 138/91 138/91 O2 Sat by Pulse 99 96 Oximetry 01/31/19 01/31/19 01/31/19 11:30 11:50 12:00 Temperature Pulse Rate 78 78 76 Respiratory 11 L 13 Rate Blood Pressure 138/91 154/81 154/81 O2 Sat by Pulse 100 Oximetry 01/31/19 13:02 Temperature Pulse Rate 77 Respiratory 23 Rate Blood Pressure 142/76 O2 Sat by Pulse 93 Oximetry - Lab Data Result diagrams: 01/31/19 10:49 01/31/19 10:49 Lab Results 01/31/19 01/31/19 01/31/19 Range/Units 10:49 10:49 10:49 WBC 10.1 (4.5-11.0) K/mm3 RBC 4.20 (3.65-5.03) M/mm3 Hgb 12.5 (10.1-14.3) gm/dl Hct 38.0 (30.3-42.9) % MCV 90 (79-97) fl MCH 30 (28-32) pg MCHC 33 (30-34) % RDW 14.6 (13.2-15.2) % Plt Count 183 (140-440) K/mm3 Lymph % (Auto) 16.5 (13.4-35.0) % [place] % (Auto) 10.4 H (0.0-7.3) % Eos % (Auto) 0.4 (0.0-4.3) % Baso % (Auto) 0.4 (0.0-1.8) % Lymph # 1.7 (1.2-5.4) K/mm3 [place] # 1.1 H (0.0-0.8) K/mm3 Eos # 0.0 (0.0-0.4) K/mm3 Baso # 0.0 (0.0-0.1) K/mm3 Seg Neutrophils % 72.3 H (40.0-70.0) % Seg Neutrophils # 7.3 (1.8-7.7) K/mm3 POC ABG pH (7.35-7.45) POC ABG pCO2 (35-45) POC ABG pO2 (80-105) POC ABG HCO3 (22-26 mml/L) POC ABG Total CO2 (23-27mmol/L) POC ABG O2 Sat POC ABG Base Excess ((-2) - (+3)mmol/L) FiO2 % Sodium 136 L (137-145) mmol/L Potassium 5.0 (3.6-5.0) mmol/L Chloride 100.8 (98-107) mmol/L Carbon Dioxide 25 (22-30) mmol/L Anion Gap 15 mmol/L BUN 7 (7-17) mg/dL Creatinine 0.5 L (0.7-1.2) mg/dL Estimated GFR > 60 ml/min BUN/Creatinine Ratio 14 % Glucose 85 (65-100) mg/dL POC Glucose (70-105) Lactic Acid (0.7-2.0) mmol/L Calcium 9.5 (8.4-10.2) mg/dL Ammonia (25-60) umol/L Troponin T (0.00-0.029) ng/mL TSH (0.270-4.200) mlU/mL Urine Color (Yellow) Urine Turbidity (Clear) Urine pH (5.0-7.0) Ur Specific [place] (1.003-1.030) Urine Protein (Negative) mg/dL Urine Glucose (UA) (Negative) mg/dL Urine Ketones (Negative) mg/dL Urine Blood (Negative) Urine Nitrite (Negative) Urine Bilirubin (Negative) Urine Urobilinogen (<2.0) mg/dL Ur Leukocyte Esterase (Negative) Urine WBC (Auto) (0.0-6.0) /HPF Urine RBC (Auto) (0.0-6.0) /HPF U Epithel Cells (Auto) (0-13.0) /HPF Urine Mucus /HPF Salicylates < 0.3 L (2.8-20.0) mg/dL Urine Opiates Screen Urine Methadone Screen Acetaminophen (10.0-30.0) ug/mL Ur Barbiturates Screen Valproic Acid 71.5 (50-100) ug/mL Ur Phencyclidine Scrn Ur Amphetamines Screen U Benzodiazepines Scrn [place] 0.9 (0.0-1.2) mmol/L Urine Cocaine Screen U Marijuana (THC) Screen Drugs of Abuse Note Plasma/Serum Alcohol (0-0.07) % 01/31/19 01/31/19 01/31/19 Range/Units 10:49 10:49 10:49 WBC (4.5-11.0) K/mm3 RBC (3.65-5.03) M/mm3 Hgb (10.1-14.3) gm/dl Hct (30.3-42.9) % MCV (79-97) fl MCH (28-32) pg MCHC (30-34) % RDW (13.2-15.2) % Plt Count (140-440) K/mm3 Lymph % (Auto) (13.4-35.0) % [place] % (Auto) (0.0-7.3) % Eos % (Auto) (0.0-4.3) % Baso % (Auto) (0.0-1.8) % Lymph # (1.2-5.4) K/mm3 [place] # (0.0-0.8) K/mm3 Eos # (0.0-0.4) K/mm3 Baso # (0.0-0.1) K/mm3 Seg Neutrophils % (40.0-70.0) % Seg Neutrophils # (1.8-7.7) K/mm3 POC ABG pH (7.35-7.45) POC ABG pCO2 (35-45) POC ABG pO2 (80-105) POC ABG HCO3 (22-26 mml/L) POC ABG Total CO2 (23-27mmol/L) POC ABG O2 Sat POC ABG Base Excess ((-2) - (+3)mmol/L) FiO2 % Sodium (137-145) mmol/L Potassium (3.6-5.0) mmol/L Chloride (98-107) mmol/L Carbon Dioxide (22-30) mmol/L Anion Gap mmol/L BUN (7-17) mg/dL Creatinine (0.7-1.2) mg/dL Estimated GFR ml/min BUN/Creatinine Ratio % Glucose (65-100) mg/dL POC Glucose (70-105) Lactic Acid 1.30 (0.7-2.0) mmol/L Calcium (8.4-10.2) mg/dL Ammonia (25-60) umol/L Troponin T < 0.010 (0.00-0.029) ng/mL TSH (0.270-4.200) mlU/mL Urine Color (Yellow) Urine Turbidity (Clear) Urine pH (5.0-7.0) Ur Specific [place] (1.003-1.030) Urine Protein (Negative) mg/dL Urine Glucose (UA) (Negative) mg/dL Urine Ketones (Negative) mg/dL Urine Blood (Negative) Urine Nitrite (Negative) Urine Bilirubin (Negative) Urine Urobilinogen (<2.0) mg/dL Ur Leukocyte Esterase (Negative) Urine WBC (Auto) (0.0-6.0) /HPF Urine RBC (Auto) (0.0-6.0) /HPF U Epithel Cells (Auto) (0-13.0) /HPF Urine Mucus /HPF Salicylates (2.8-20.0) mg/dL Urine Opiates Screen Urine Methadone Screen Acetaminophen (10.0-30.0) ug/mL Ur Barbiturates Screen Valproic Acid (50-100) ug/mL Ur Phencyclidine Scrn Ur Amphetamines Screen U Benzodiazepines Scrn [place] (0.0-1.2) mmol/L Urine Cocaine Screen U Marijuana (THC) Screen Drugs of Abuse Note Plasma/Serum Alcohol < 0.01 (0-0.07) % 01/31/19 01/31/19 01/31/19 Range/Units 11:10 11:10 11:10 WBC (4.5-11.0) K/mm3 RBC (3.65-5.03) M/mm3 Hgb (10.1-14.3) gm/dl Hct (30.3-42.9) % MCV (79-97) fl MCH (28-32) pg MCHC (30-34) % RDW (13.2-15.2) % Plt Count (140-440) K/mm3 Lymph % (Auto) (13.4-35.0) % [place] % (Auto) (0.0-7.3) % Eos % (Auto) (0.0-4.3) % Baso % (Auto) (0.0-1.8) % Lymph # (1.2-5.4) K/mm3 [place] # (0.0-0.8) K/mm3 Eos # (0.0-0.4) K/mm3 Baso # (0.0-0.1) K/mm3 Seg Neutrophils % (40.0-70.0) % Seg Neutrophils # (1.8-7.7) K/mm3 POC ABG pH (7.35-7.45) POC ABG pCO2 (35-45) POC ABG pO2 (80-105) POC ABG HCO3 (22-26 mml/L) POC ABG Total CO2 (23-27mmol/L) POC ABG O2 Sat POC ABG Base Excess ((-2) - (+3)mmol/L) FiO2 % Sodium (137-145) mmol/L Potassium (3.6-5.0) mmol/L Chloride (98-107) mmol/L Carbon Dioxide (22-30) mmol/L Anion Gap mmol/L BUN (7-17) mg/dL Creatinine (0.7-1.2) mg/dL Estimated GFR ml/min BUN/Creatinine Ratio % Glucose (65-100) mg/dL POC Glucose (70-105) Lactic Acid (0.7-2.0) mmol/L Calcium (8.4-10.2) mg/dL Ammonia 40.0 (25-60) umol/L Troponin T (0.00-0.029) ng/mL TSH 8.240 H (0.270-4.200) mlU/mL Urine Color (Yellow) Urine Turbidity (Clear) Urine pH (5.0-7.0) Ur Specific [place] (1.003-1.030) Urine Protein (Negative) mg/dL Urine Glucose (UA) (Negative) mg/dL Urine Ketones (Negative) mg/dL Urine Blood (Negative) Urine Nitrite (Negative) Urine Bilirubin (Negative) Urine Urobilinogen (<2.0) mg/dL Ur Leukocyte Esterase (Negative) Urine WBC (Auto) (0.0-6.0) /HPF Urine RBC (Auto) (0.0-6.0) /HPF U Epithel Cells (Auto) (0-13.0) /HPF Urine Mucus /HPF Salicylates (2.8-20.0) mg/dL Urine Opiates Screen Urine Methadone Screen Acetaminophen < 5.0 L (10.0-30.0) ug/mL Ur Barbiturates Screen Valproic Acid (50-100) ug/mL Ur Phencyclidine Scrn Ur Amphetamines Screen U Benzodiazepines Scrn [place] (0.0-1.2) mmol/L Urine Cocaine Screen U Marijuana (THC) Screen Drugs of Abuse Note Plasma/Serum Alcohol (0-0.07) % 01/31/19 01/31/19 01/31/19 Range/Units 11:16 12:13 Unknown WBC (4.5-11.0) K/mm3 RBC (3.65-5.03) M/mm3 Hgb (10.1-14.3) gm/dl Hct (30.3-42.9) % MCV (79-97) fl MCH (28-32) pg MCHC (30-34) % RDW (13.2-15.2) % Plt Count (140-440) K/mm3 Lymph % (Auto) (13.4-35.0) % [place] % (Auto) (0.0-7.3) % Eos % (Auto) (0.0-4.3) % Baso % (Auto) (0.0-1.8) % Lymph # (1.2-5.4) K/mm3 [place] # (0.0-0.8) K/mm3 Eos # (0.0-0.4) K/mm3 Baso # (0.0-0.1) K/mm3 Seg Neutrophils % (40.0-70.0) % Seg Neutrophils # (1.8-7.7) K/mm3 POC ABG pH 7.396 (7.35-7.45) POC ABG pCO2 39.5 (35-45) POC ABG pO2 79 L (80-105) POC ABG HCO3 24.3 (22-26 mml/L) POC ABG Total CO2 25 (23-27mmol/L) POC ABG O2 Sat 96 POC ABG Base Excess -1 ((-2) - (+3)mmol/L) FiO2 21 % Sodium (137-145) mmol/L Potassium (3.6-5.0) mmol/L Chloride (98-107) mmol/L Carbon Dioxide (22-30) mmol/L Anion Gap mmol/L BUN (7-17) mg/dL Creatinine (0.7-1.2) mg/dL Estimated GFR ml/min BUN/Creatinine Ratio % Glucose (65-100) mg/dL POC Glucose 85 (70-105) Lactic Acid (0.7-2.0) mmol/L Calcium (8.4-10.2) mg/dL Ammonia (25-60) umol/L Troponin T (0.00-0.029) ng/mL TSH (0.270-4.200) mlU/mL Urine Color [place] (Yellow) Urine Turbidity Clear (Clear) Urine pH 5.0 (5.0-7.0) Ur Specific [place] 1.025 (1.003-1.030) Urine Protein <15 mg/dl (Negative) mg/dL Urine Glucose (UA) Neg (Negative) mg/dL Urine Ketones Tr (Negative) mg/dL Urine Blood Neg (Negative) Urine Nitrite Neg (Negative) Urine Bilirubin Neg (Negative) Urine Urobilinogen 4.0 (<2.0) mg/dL Ur Leukocyte Esterase Neg (Negative) Urine WBC (Auto) 2.0 (0.0-6.0) /HPF Urine RBC (Auto) 3.0 (0.0-6.0) /HPF U Epithel Cells (Auto) < 1.0 (0-13.0) /HPF Urine Mucus 1+ /HPF Salicylates (2.8-20.0) mg/dL Urine Opiates Screen Urine Methadone Screen Acetaminophen (10.0-30.0) ug/mL Ur Barbiturates Screen Valproic Acid (50-100) ug/mL Ur Phencyclidine Scrn Ur Amphetamines Screen U Benzodiazepines Scrn [place] (0.0-1.2) mmol/L Urine Cocaine Screen U Marijuana (THC) Screen Drugs of Abuse Note Plasma/Serum Alcohol (0-0.07) % 01/31/19 Range/Units Unknown WBC (4.5-11.0) K/mm3 RBC (3.65-5.03) M/mm3 Hgb (10.1-14.3) gm/dl Hct (30.3-42.9) % MCV (79-97) fl MCH (28-32) pg MCHC (30-34) % RDW (13.2-15.2) % Plt Count (140-440) K/mm3 Lymph % (Auto) (13.4-35.0) % [place] % (Auto) (0.0-7.3) % Eos % (Auto) (0.0-4.3) % Baso % (Auto) (0.0-1.8) % Lymph # (1.2-5.4) K/mm3 [place] # (0.0-0.8) K/mm3 Eos # (0.0-0.4) K/mm3 Baso # (0.0-0.1) K/mm3 Seg Neutrophils % (40.0-70.0) % Seg Neutrophils # (1.8-7.7) K/mm3 POC ABG pH (7.35-7.45) POC ABG pCO2 (35-45) POC ABG pO2 (80-105) POC ABG HCO3 (22-26 mml/L) POC ABG Total CO2 (23-27mmol/L) POC ABG O2 Sat POC ABG Base Excess ((-2) - (+3)mmol/L) FiO2 % Sodium (137-145) mmol/L Potassium (3.6-5.0) mmol/L Chloride (98-107) mmol/L Carbon Dioxide (22-30) mmol/L Anion Gap mmol/L BUN (7-17) mg/dL Creatinine (0.7-1.2) mg/dL Estimated GFR ml/min BUN/Creatinine Ratio % Glucose (65-100) mg/dL POC Glucose (70-105) Lactic Acid (0.7-2.0) mmol/L Calcium (8.4-10.2) mg/dL Ammonia (25-60) umol/L Troponin T (0.00-0.029) ng/mL TSH (0.270-4.200) mlU/mL Urine Color (Yellow) Urine Turbidity (Clear) Urine pH (5.0-7.0) Ur Specific [place] (1.003-1.030) Urine Protein (Negative) mg/dL Urine Glucose (UA) (Negative) mg/dL Urine Ketones (Negative) mg/dL Urine Blood (Negative) Urine Nitrite (Negative) Urine Bilirubin (Negative) Urine Urobilinogen (<2.0) mg/dL Ur Leukocyte Esterase (Negative) Urine WBC (Auto) (0.0-6.0) /HPF Urine RBC (Auto) (0.0-6.0) /HPF U Epithel Cells (Auto) (0-13.0) /HPF Urine Mucus /HPF Salicylates (2.8-20.0) mg/dL Urine Opiates Screen Presumptive negative Urine Methadone Screen Presumptive negative Acetaminophen (10.0-30.0) ug/mL Ur Barbiturates Screen Presumptive negative Valproic Acid (50-100) ug/mL Ur Phencyclidine Scrn Presumptive negative Ur Amphetamines Screen Presumptive negative U Benzodiazepines Scrn Presumptive negative [place] (0.0-1.2) mmol/L Urine Cocaine Screen Presumptive negative U Marijuana (THC) Screen Presumptive negative Drugs of Abuse Note Disclamer Plasma/Serum Alcohol (0-0.07) % - EKG Data EKG shows normal: sinus rhythm, axis, intervals, QRS complexes, ST-T waves Rate: normal - Radiology Data Radiology results: report reviewed, image reviewed CT head without acute process according to radiology report. Chest radiograph no acute process according to radiology report - Medical Decision Making Ms. Mena has history of bipolar affective disorder and schizophrenia Flulike illness symptoms began within the last 2 days. No indication of sepsis. No evidence of bacterial infection. Altered mental status began on yesterday. I reviewed psychiatry consultation from June. Patient was hyperverbal, delusional, labile. Marked different from her presentation today. In the setting of dehydration, delirium due to medication would be exacerbated as well as possible acute psychosis. She has had several previous ED presentations for psychosis. No evidence of CVA evidence of meningitis no evidence of intracranial hemorrhage or intracranial mass. 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 40 minutes of critical care time excluding procedures were used in the care of the patient. Patient required multiple assessments and interventions. I reviewed the electronic medical record. I spoke with consultants involved in the care of the patient. ED Disposition Clinical Impression: Flu-like symptoms, Acute metabolic encephalopathy, Schizophrenia, Bipolar disorder, Elevated TSH Disposition: OP ADMIT IP TO THIS HOSP Is pt being admited?: Yes Does the pt Need Aspirin: No Condition: Stable
--- NOTE | 2019-01-31 12:28 | Cat Scan Report ---
CT head/brain wo con INDICATION / CLINICAL INFORMATION: 28 years Female; AMS. TECHNIQUE: Routine CT head without contrast. All CT scans at this location are performed using CT dos e reduction for ALARA by means of automated exposure control. COMPARISON: None. FINDINGS: BRAIN / INTRACRANIAL CONTENTS: Small lacunar infarcts suggested in the inferior gangliocapsular regio ns bilaterally-these appear to be subacute to chronic in age. Otherwise, no acute hemorrhage, mass effect, midline shift, hydrocephalus, or acute, large territoria l infarct. No chronic infarct or focal atrophy. Normal brain volume and ventricular/sulcal size for a ge. No significant white matter abnormality. CRANIOCERVICAL JUNCTION: No significant abnormality. ORBITS: No significant abnormality of visualized orbits. SINUSES / MASTOIDS: Mild mucosal thickening seen in the ethmoids. Mucous retention cyst/polyp seen in the maxillary antra - left greater than right. ADDITIONAL FINDINGS: None. IMPRESSION: 1. No focal mass, hemorrhage, hydrocephalus, or acute, large territorial infarct. Signer Name: Josh Partida MD, III Signed: 01/31/2019 12:24 PM Workstation Name: [id number]
--- NOTE | 2019-01-31 13:55 | XRay Report ---
CHEST 1 VIEW INDICATION: dyspnea. COMPARISON: None. FINDINGS: Support devices: None. Heart: Within normal limits. Pulmonary vessels: Normal. Normal. Lungs/Pleura: Normally expanded and clear. No airspace disease or pleural effusion. Additional findings: None. IMPRESSION: Normal chest. Signer Name: Mynor Rios MD Signed: 01/31/2019 1:51 PM Workstation Name: [id number]
[2019-01-31] MEDS: NACL 0.9% 1000 ML 1,000 ML IV SCH (19:48)
[2019-01-31] MEDS ORDERED: ZOFRAN IV PRN (21:11)
[2019-01-31] MEDS ORDERED: TYLENOL PO PRN (21:11)
[2019-01-31] MEDS ORDERED: DILAUDID IV PRN (21:11)
[2019-01-31] MEDS ORDERED: SODIUM CHLORIDE FLUSH SYRINGE 10 ML IV PRN (21:11)
[2019-01-31] MEDS: PEPCID IV SCH (22:05)
[2019-01-31] MEDS: SODIUM CHLORIDE FLUSH SYRINGE 10 ML IV SCH (22:06)
[2019-01-31] MEDS: COGENTIN PO SCH (22:38)
[2019-01-31] MEDS: RisperDAL PO SCH (22:38)
[2019-01-31] MEDS: ROCEPHIN/NS 2 GM/100 ML 2 GM/100 ML BAG IV SCH (23:33)
[2019-02-01] MEDS: NACL 0.9% 1000 ML 1,000 ML IV SCH ×2 (03:03→19:46)
--- NOTE | 2019-02-01 06:05 | Event Note ---
Date: 01/31/19 See H/p in reports Acute Encephalopathy Drug to drug interaction? Dehydration
--- NOTE | 2019-02-01 06:32 | History and Physical Report ---
CHIEF COMPLAINT: Weakness and altered sensorium, 1 day. HISTORY OF PRESENT ILLNESS: A 28-year-old -French female with history of bipolar disorder, schizophrenia who lives in a personal detention, has been sent for altered mental status and flu-like illness. After coming from school yesterday, the patient was lethargic and confused. The patient is normally quite verbal. She is lethargic and nonverbal at this point. The patient had a cough, body aches, and diarrhea. The patient has multiple antipsychotics including Risperdal and paliperidone weekly, once in 2 weeks, 156 mg; benztropine and Depakote and lithium carbonate. No fever. PAST MEDICAL HISTORY: As mentioned, bipolar disorder and schizophrenia. PAST SURGICAL HISTORY: None. SOCIAL HISTORY: Does not smoke. No alcohol, no recreational drugs. Lives in personal detention. FAMILY HISTORY: Unavailable. CURRENT MEDICATIONS: Paliperidone 156 mg IM every 2 weeks. Benztropine 0.5 mg twice a day, Depakote 500 mg once a day, lithium 450 mg p.o. daily, Risperdal 3 mg p.o. at bedtime. ALLERGIES: None. REVIEW OF SYSTEMS: Significant for altered mental status and lethargy. No fever. No cough. Otherwise, a 14-point review of systems was done. PHYSICAL EXAMINATION: GENERAL: Young female, lethargic, decreased responsiveness. VITAL SIGNS: Blood pressure is 152/80, temperature is 98.6, pulse is 73, respirations are 20. HEENT: Dry mucous membranes. Pupils are equal and reactive. NECK: Supple, no lymphadenopathy, no thyromegaly. LUNGS: Clear to auscultation and percussion. Good air entry. CARDIOVASCULAR: S1, S2 heard. No gallop, no murmur, no rub. Apical impulse in left fifth intercostal space and midclavicular line. ABDOMEN: Soft and benign. No hepatosplenomegaly. No guarding, no rigidity. Hernial orifices are normal. EXTREMITIES: Good pedal pulses. No pedal edema. CENTRAL NERVOUS SYSTEM: The patient is lethargic. Nonverbal. Responds to painful stimuli. Moves extremities. LABORATORY DATA: Significant for white count of 10,100, H and H is 12.5 and 38.0, platelet count is 183,000. ABG was a pH of 7.396, pCO2 of 39.5, pO2 of 79, bicarbonate of 24.3, pCO2 of 25, O2 sats of 96%. Sodium is 136, slightly low, potassium is 5.0, BUN and creatinine are 7 and 0.5, glucose is 85. Hemoglobin A1c is 50. TSH is 8.24. Drug screen was negative. DIAGNOSTIC DATA: Chest x-ray was no acute findings. Head CT, no acute findings. EKG shows sinus rhythm, heart rate of [address] per minute. No acute ST-T wave changes. ASSESSMENT AND PLAN: 1. Acute encephalopathy, probably secondary to medications. IV fluids for now. We will hold the [place], we will get a lithium level. 2. Acute dehydration. IV fluids for now. 3. Hyponatremia. IV normal saline for now, very mild. 4. Bipolar disorder, mental health consult requested. 5. Elevated TSH. We will get thyroid profile. 6. Deep venous thrombosis prophylaxis, Lovenox 40 mg subcutaneous daily. Empiric Rocephin for possible infection, no source of infection identified. JOB# [id number] BAR/NTS
[2019-02-01] MEDS: COGENTIN PO SCH ×2 (09:46→22:36)
[2019-02-01] MEDS: PEPCID IV SCH (09:47)
[2019-02-01] MEDS: ROCEPHIN/NS 2 GM/100 ML 2 GM/100 ML BAG IV SCH (09:47)
[2019-02-01] MEDS: SODIUM CHLORIDE FLUSH SYRINGE 10 ML IV SCH ×2 (09:48→22:37)
[2019-02-01] MEDS: ESKALITH PO SCH (09:51)
--- NOTE | 2019-02-01 09:55 | Progress Note ---
Assessment and Plan Assessment and plan: --Acute metabolic encephalopathy; present on admission Multifactorial, underlying bipolar and schizophrenia, psychogenic medications related Closely monitor, psych evaluation --Dehydration; present on admission IV fluids and supportive care --Hyponatremia; corrected, continue IV fluids --Hypothyroidism; elevated TSH, check thyroid panel --History of bipolar disorder/schizophrenia; Continue current psych medications, follow psych evaluation and recommendation --DVT prophylaxis; Lovenox --1013 status Follow-up psych evaluation and recommendations Recommend inpatient psych transfer when medically stable Monitor closely and adjust management as needed Plan of care is reviewed with the patient and her nurse Disposition; continue inpatient care Follow clinically History Interval history: 28-year-old female patient with history of bipolar schizophrenia from a personal m[facility]p was admitted through emergency room with altered level of consciousness with flulike symptoms Today patient is little drowsy opening eyes upon calling out her name not in acute distress Vital signs reviewed Hospitalist Physical - Constitutional Vitals: Temp Pulse Resp BP Pulse Ox 98.6 F 73 20 127/91 98 02/01/19 05:01 02/01/19 05:01 02/01/19 05:01 02/01/19 05:01 02/01/19 05:01 General appearance: Present: no acute distress, well-nourished - EENT Eyes: Present: PERRL, EOM intact - Neck Neck: Present: supple, normal ROM - Respiratory Respiratory effort: normal Respiratory: bilateral: diminished, negative: rales, rhonchi, wheezing - Cardiovascular Rhythm: regular Heart Sounds: Present: S1 & S2 - Extremities Extremities: no ischemia, No edema - Abdominal General gastrointestinal: soft, non-tender, non-distended, normal bowel sounds - Integumentary Integumentary: Present: clear, warm - Psychiatric Psychiatric: other (confused) - Neurologic Neurologic: CNII-XII intact, moves all extremities Results - Labs CBC & Chem 7: 02/01/19 11:05 02/01/19 09:20 Labs: Laboratory Last Values WBC 10.1 K/mm3 (4.5-11.0) 01/31/19 10:49 RBC 4.20 M/mm3 (3.65-5.03) 01/31/19 10:49 Hgb 12.5 gm/dl (10.1-14.3) 01/31/19 10:49 Hct 38.0 % (30.3-42.9) 01/31/19 10:49 MCV 90 fl (79-97) 01/31/19 10:49 MCH 30 pg (28-32) 01/31/19 10:49 MCHC 33 % (30-34) 01/31/19 10:49 RDW 14.6 % (13.2-15.2) 01/31/19 10:49 Plt Count 183 K/mm3 (140-440) 01/31/19 10:49 Lymph % (Auto) 16.5 % (13.4-35.0) 01/31/19 10:49 [place] % (Auto) 10.4 % (0.0-7.3) H 01/31/19 10:49 Eos % (Auto) 0.4 % (0.0-4.3) 01/31/19 10:49 Baso % (Auto) 0.4 % (0.0-1.8) 01/31/19 10:49 Lymph # 1.7 K/mm3 (1.2-5.4) 01/31/19 10:49 [place] # 1.1 K/mm3 (0.0-0.8) H 01/31/19 10:49 Eos # 0.0 K/mm3 (0.0-0.4) 01/31/19 10:49 Baso # 0.0 K/mm3 (0.0-0.1) 01/31/19 10:49 Seg Neutrophils % 72.3 % (40.0-70.0) H 01/31/19 10:49 Seg Neutrophils # 7.3 K/mm3 (1.8-7.7) 01/31/19 10:49 POC ABG pH 7.396 (7.35-7.45) 01/31/19 12:13 POC ABG pCO2 39.5 (35-45) 01/31/19 12:13 POC ABG pO2 79 (80-105) L 01/31/19 12:13 POC ABG HCO3 24.3 (22-26 mml/L) 01/31/19 12:13 POC ABG Total CO2 25 (23-27mmol/L) 01/31/19 12:13 POC ABG O2 Sat 96 01/31/19 12:13 POC ABG Base Excess -1 ((-2) - (+3)mmol/L) 01/31/19 12:13 21 % 01/31/19 12:13 Sodium 136 mmol/L (137-145) L 01/31/19 10:49 Potassium 5.0 mmol/L (3.6-5.0) 01/31/19 10:49 Chloride 100.8 mmol/L (98-107) 01/31/19 10:49 Carbon Dioxide 25 mmol/L (22-30) 01/31/19 10:49 15 mmol/L 01/31/19 10:49 BUN 7 mg/dL (7-17) 01/31/19 10:49 0.5 mg/dL (0.7-1.2) L 01/31/19 10:49 Estimated GFR > 60 ml/min 01/31/19 10:49 14 % 01/31/19 10:49 Glucose 85 mg/dL (65-100) 01/31/19 10:49 POC Glucose 79 (70-105) 01/31/19 21:25 5.0 % (4-6) 01/31/19 10:49 Lactic Acid 1.30 mmol/L (0.7-2.0) 01/31/19 10:49 Calcium 9.5 mg/dL (8.4-10.2) 01/31/19 10:49 40.0 umol/L (25-60) 01/31/19 11:10 < 0.010 ng/mL (0.00-0.029) 01/31/19 10:49 TSH 8.240 mlU/mL (0.270-4.200) H 01/31/19 11:10 [place] (Yellow) 01/31/19 Unknown Clear (Clear) 01/31/19 Unknown 5.0 (5.0-7.0) 01/31/19 Unknown Ur Specific [place] 1.025 (1.003-1.030) 01/31/19 Unknown <15 mg/dl mg/dL (Negative) 01/31/19 Unknown Neg mg/dL (Negative) 01/31/19 Unknown Tr mg/dL (Negative) 01/31/19 Unknown Neg (Negative) 01/31/19 Unknown Neg (Negative) 01/31/19 Unknown Neg (Negative) 01/31/19 Unknown 4.0 mg/dL (<2.0) 01/31/19 Unknown Ur Leukocyte Esterase Neg (Negative) 01/31/19 Unknown 2.0 /HPF (0.0-6.0) 01/31/19 Unknown 3.0 /HPF (0.0-6.0) 01/31/19 Unknown U Epithel Cells (Auto) < 1.0 /HPF (0-13.0) 01/31/19 Unknown 1+ /HPF 01/31/19 Unknown Salicylates < 0.3 mg/dL (2.8-20.0) L 01/31/19 10:49 Presumptive negative 01/31/19 Unknown Presumptive negative 01/31/19 Unknown Acetaminophen < 5.0 ug/mL (10.0-30.0) L 01/31/19 11:10 Ur Barbiturates Screen Presumptive negative 01/31/19 Unknown Valproic Acid 71.5 ug/mL (50-100) 01/31/19 10:49 Ur Phencyclidine Scrn Presumptive negative 01/31/19 Unknown Ur Amphetamines Screen Presumptive negative 01/31/19 Unknown U Benzodiazepines Scrn Presumptive negative 01/31/19 Unknown [place] 0.9 mmol/L (0.0-1.2) 01/31/19 10:49 Presumptive negative 01/31/19 Unknown U Marijuana (THC) Screen Presumptive negative 01/31/19 Unknown Disclamer 01/31/19 Unknown Plasma/Serum Alcohol < 0.01 % (0-0.07) 01/31/19 10:49 Active Medications - Current Medications Current Medications: Generic Name Dose Route Start Last Admin Trade Name Freq PRN Reason Stop Dose Admin Acetaminophen 650 mg 01/31/19 21:11 Tylenol PO Q4H PRN Pain MILD(1-3)/Fever >100.5/PASCUAL Benztropine Mesylate 0.5 mg 01/31/19 22:00 02/01/19 09:46 Cogentin PO 0.5 mg BID CHAI Administration Divalproex Sodium 500 mg 02/01/19 10:00 02/01/19 09:46 Depakote Er PO 500 mg QDAY CHAI Administration Enoxaparin Sodium 40 mg 02/01/19 22:00 Lovenox SUB-Q QDAY@2200 CHAI Famotidine 20 mg 01/31/19 22:00 02/01/19 09:47 Pepcid IV 20 mg BID CHAI Administration Hydromorphone HCl 0.5 mg 01/31/19 21:11 Dilaudid IV Q3H PRN Pain , Severe (7-10) Sodium Chloride 1,000 mls @ 125 mls/hr 01/31/19 19:00 02/01/19 03:03 Nacl 0.9% 1000 Ml IV 125 mls/hr DIRECT CHAI Administration Ceftriaxone Sodium 2 gm in 100 mls @ 200 mls/hr 01/31/19 22:00 02/01/19 09:47 Rocephin/Ns 2 Gm/100 Ml IV 200 mls/hr Q24HR CHAI Administration Protocol [place] Carbonate 450 mg 02/01/19 10:00 02/01/19 09:51 Eskalith PO 450 mg QAM CHAI Administration Ondansetron HCl 4 mg 01/31/19 21:11 Zofran IV Q8H PRN Nausea And Vomiting Risperidone 3 mg 01/31/19 22:00 01/31/19 22:38 Risperdal PO Not Given QHS CHAI Sodium Chloride 10 ml 01/31/19 22:00 02/01/19 09:48 Sodium Chloride Flush Syringe 10 Ml IV 10 ml BID CHAI Administration Sodium Chloride 10 ml 01/31/19 21:11 Sodium Chloride Flush Syringe 10 Ml IV PRN PRN LINE FLUSH
[2019-02-01 10:11] LABS: Albumin 3.2 g/dL (3.9-5); BUN/Creatinine Ratio 12; Blood Urea Nitrogen 6 mg/dL (7-17); Calcium 8.6 mg/dL (8.4-10.2); Hemolysis Index 187
[2019-02-01 10:37] LABS: Alanine Aminotransferase 56 units/L (7-56)
[2019-02-01 11:29] LABS: Basophils % (Auto) 0.4 % (0.0-1.8); Eosinophils # (Auto) 0.1 K/mm3 (0.0-0.4); Eosinophils % (Auto) 1.3 % (0.0-4.3); Hemoglobin 12.1 gm/dl (10.1-14.3); Lymphocytes # (Auto) 1.4 K/mm3 (1.2-5.4); Lymphocytes % (Auto) 19.6 % (13.4-35.0); Mean Corpuscular HGB Conc 33 % (30-34); Mean Corpuscular Volume 92 fl (79-97); Monocytes # (Auto) 0.8 K/mm3 (0.0-0.8); Monocytes % (Auto) 11.6 % (0.0-7.3); Platelet Count 176 K/mm3 (140-440); Red Blood Count 4.04 M/mm3 (3.65-5.03); Red Cell Distribution Width 14.6 % (13.2-15.2)
[2019-02-01] MEDS ORDERED: KIONEX PO ONE (11:30)
--- NOTE | 2019-02-01 14:30 | Consultation ---
History of Present Illness - Reason for Consult Consult date: 02/01/19 Reason for consult: Initial Psychiatric Illness - Chief Complaint Chief complaint: Patient is asleep. Refusing to awake and speak with provider. Several attempts were made, patient remains asleep. - History of Present Psychiatric Illness Patient is asleep. Refusing to awake and speak with provider. Several attempts were made, patient remains asleep. Per assigned RN patient has exhibited this behavior throughout the day. Very difficult to awake. Current Psychiatric Medications: Unable to assess. Past Psychiatric History: Unable to assess. Past Medication Trials: Unable to assess. History of Trauma/Abuse: Unable to assess. History of Alcohol Abuse: Unable to assess. Family History of Psychiatric Illness/Substance Abuse: Unable to assess. Social History: Unable to assess. Medications and Allergies Allergies Allergy/AdvReac Type Severity Reaction Status Date / Time No Known Allergies Allergy Verified 04/24/17 11:38 Home Medications Medication Instructions Recorded Confirmed Last Taken Type Paliperidone Palmitate (Nf) 156 mg IM Q2W 06/07/15 01/31/19 05/24/15 History [Invega Sustenna (Nf)] Benztropine [Cogentin] 0.5 mg PO BID 01/31/19 01/31/19 Unknown History Divalproex ER [DepaKOTE ER] 500 mg PO QDAY 01/31/19 01/31/19 Unknown History [place] Carbonate [Eskalith] 450 mg PO QAM 01/31/19 01/31/19 Unknown History risperiDONE [RisperDAL] 3 mg PO QHS 01/31/19 01/31/19 Unknown History Active Meds: Active Medications Acetaminophen (Tylenol) 650 mg PO Q4H PRN PRN Reason: Pain MILD(1-3)/Fever >100.5/PASCUAL Benztropine Mesylate (Cogentin) 0.5 mg PO BID [facility] Last Admin: 02/01/19 09:46 Dose: 0.5 mg Documented by: Divalproex Sodium (Depakote Er) 500 mg PO QDAY [facility] Last Admin: 02/01/19 09:46 Dose: 500 mg Documented by: Enoxaparin Sodium (Lovenox) 40 mg SUB-Q QDAY@2200 [facility] Famotidine (Pepcid) 20 mg IV BID [facility] Last Admin: 02/01/19 09:47 Dose: 20 mg Documented by: Hydromorphone HCl (Dilaudid) 0.5 mg IV Q3H PRN PRN Reason: Pain , Severe (7-10) Sodium Chloride (Nacl 0.9% 1000 Ml) 1,000 mls @ 125 mls/hr IV DIRECT [facility] Last Admin: 02/01/19 03:03 Dose: 125 mls/hr Documented by: Ceftriaxone Sodium (Rocephin/Ns 2 Gm/100 Ml) 2 gm in 100 mls @ 200 mls/hr IV Q24HR [facility]; Protocol Last Admin: 02/01/19 09:47 Dose: 200 mls/hr Documented by: [place] Carbonate (Eskalith) 450 mg PO QAM [facility] Last Admin: 02/01/19 09:51 Dose: 450 mg Documented by: Ondansetron HCl (Zofran) 4 mg IV Q8H PRN PRN Reason: Nausea And Vomiting Risperidone (Risperdal) 3 mg PO QHS [facility] Last Admin: 01/31/19 22:38 Dose: Not Given Documented by: Sodium Chloride (Sodium Chloride Flush Syringe 10 Ml) 10 ml IV BID [facility] Last Admin: 02/01/19 09:48 Dose: 10 ml Documented by: Sodium Chloride (Sodium Chloride Flush Syringe 10 Ml) 10 ml IV PRN PRN PRN Reason: LINE FLUSH Mental Status Exam - Vital signs Last Vital Signs Temp 98.5 F 02/01/19 11:42 Pulse 84 02/01/19 11:42 Resp 22 02/01/19 11:42 BP 146/88 02/01/19 11:42 Pulse Ox 90 02/01/19 11:42 - Exam Narrative exam: Unable to asses patient's mental status due to her condition. Results Result Diagrams: 02/01/19 11:05 02/01/19 09:20 Abnormal lab results 02/01/19 02/01/19 Range/Units 09:20 11:05 [place] % (Auto) 11.6 H (0.0-7.3) % Potassium 5.3 H (3.6-5.0) mmol/L Chloride 110.6 H (98-107) mmol/L Carbon Dioxide 20 L (22-30) mmol/L BUN 6 L (7-17) mg/dL Creatinine 0.5 L (0.7-1.2) mg/dL AST 77 H (5-40) units/L Albumin 3.2 L (3.9-5) g/dL All other labs normal. Assessment and Plan Assessment and plan: Impression: Provider unable to assess. Patient is asleep. Recommendation/Plan: 1. Will reassess in 24 hours. Disposition: The patient was referred to inpatient psychiatric services. Will staff with Dr. Ele Meraz.
[2019-02-01] MEDS: LOVENOX SUB-Q SCH (22:36)
[2019-02-01] MEDS: RisperDAL PO SCH ×2 (22:36)
[2019-02-01] MEDS: PEPCID PO SCH (22:36)
[2019-02-02] MEDS: NACL 0.9% 1000 ML 1,000 ML IV SCH ×2 (02:47→18:29)
[2019-02-02 05:41] LABS: BUN/Creatinine Ratio 15; Blood Urea Nitrogen 6 mg/dL (7-17); Calcium 8.7 mg/dL (8.4-10.2); Hemolysis Index 10
--- NOTE | 2019-02-02 11:50 | Progress Note ---
Assessment and Plan Assessment and plan: -Acute metabolic encephalopathy; present on admission Multifactorial, underlying bipolar and schizophrenia, Patient more alert and awake --Dehydration; present on admission resolved --Hyponatremia; corrected, continue IV fluids --Hypothyroidism; elevated TSH, check thyroid panel --Possible obstructive sleep apnea: Patient needs op sleep study --History of bipolar disorder/schizophrenia; Continue current psych medications, follow psych evaluation and recommendation Psych cleared for discharge home and f/u out pt --DVT prophylaxis; Lovenox Plan of care is reviewed with the patient and her nurse Disposition; continue inpatient care Possible DC tomorrow if stable History Interval history: Patient seen and examined,medical records reviewed Patient sleeps most of the time No new complaints Vitals reviewed Hospitalist Physical - Constitutional Vitals: Temp Pulse Resp BP Pulse Ox 98.2 F 92 H 22 147/81 97 02/01/19 23:07 02/01/19 23:07 02/01/19 23:07 02/01/19 23:07 02/01/19 23:07 General appearance: Present: no acute distress, well-nourished, obese (morbidly obese) - EENT Eyes: Present: PERRL, EOM intact - Neck Neck: Present: supple, normal ROM - Respiratory Respiratory effort: normal Respiratory: bilateral: diminished, negative: rales, rhonchi, wheezing - Cardiovascular Rhythm: regular Heart Sounds: Present: S1 & S2 - Extremities Extremities: no ischemia, No edema - Abdominal General gastrointestinal: soft, non-tender, non-distended, normal bowel sounds - Integumentary Integumentary: Present: clear, warm - Psychiatric Psychiatric: appropriate mood/affect, other - Neurologic Neurologic: CNII-XII intact, moves all extremities Results - Labs CBC & Chem 7: 02/01/19 11:05 02/02/19 04:47 Labs: Laboratory Last Values WBC 7.0 K/mm3 (4.5-11.0) 02/01/19 11:05 RBC 4.04 M/mm3 (3.65-5.03) 02/01/19 11:05 Hgb 12.1 gm/dl (10.1-14.3) 02/01/19 11:05 Hct 37.0 % (30.3-42.9) 02/01/19 11:05 MCV 92 fl (79-97) 02/01/19 11:05 MCH 30 pg (28-32) 02/01/19 11:05 MCHC 33 % (30-34) 02/01/19 11:05 RDW 14.6 % (13.2-15.2) 02/01/19 11:05 Plt Count 176 K/mm3 (140-440) 02/01/19 11:05 Lymph % (Auto) 19.6 % (13.4-35.0) 02/01/19 11:05 [place] % (Auto) 11.6 % (0.0-7.3) H 02/01/19 11:05 Eos % (Auto) 1.3 % (0.0-4.3) 02/01/19 11:05 Baso % (Auto) 0.4 % (0.0-1.8) 02/01/19 11:05 Lymph # 1.4 K/mm3 (1.2-5.4) 02/01/19 11:05 [place] # 0.8 K/mm3 (0.0-0.8) 02/01/19 11:05 Eos # 0.1 K/mm3 (0.0-0.4) 02/01/19 11:05 Baso # 0.0 K/mm3 (0.0-0.1) 02/01/19 11:05 Seg Neutrophils % 67.1 % (40.0-70.0) 02/01/19 11:05 Seg Neutrophils # 4.7 K/mm3 (1.8-7.7) 02/01/19 11:05 POC ABG pH 7.396 (7.35-7.45) 01/31/19 12:13 POC ABG pCO2 39.5 (35-45) 01/31/19 12:13 POC ABG pO2 79 (80-105) L 01/31/19 12:13 POC ABG HCO3 24.3 (22-26 mml/L) 01/31/19 12:13 POC ABG Total CO2 25 (23-27mmol/L) 01/31/19 12:13 POC ABG O2 Sat 96 01/31/19 12:13 POC ABG Base Excess -1 ((-2) - (+3)mmol/L) 01/31/19 12:13 21 % 01/31/19 12:13 Sodium 139 mmol/L (137-145) 02/02/19 04:47 Potassium 4.0 mmol/L (3.6-5.0) D 02/02/19 04:47 Chloride 106.5 mmol/L (98-107) 02/02/19 04:47 Carbon Dioxide 24 mmol/L (22-30) 02/02/19 04:47 13 mmol/L 02/02/19 04:47 BUN 6 mg/dL (7-17) L 02/02/19 04:47 0.4 mg/dL (0.7-1.2) L 02/02/19 04:47 Estimated GFR > 60 ml/min 02/02/19 04:47 15 % 02/02/19 04:47 Glucose 98 mg/dL (65-100) 02/02/19 04:47 POC Glucose 79 (70-105) 01/31/19 21:25 5.0 % (4-6) 01/31/19 10:49 Lactic Acid 1.30 mmol/L (0.7-2.0) 01/31/19 10:49 Calcium 8.7 mg/dL (8.4-10.2) 02/02/19 04:47 0.20 mg/dL (0.1-1.2) 02/01/19 09:20 AST 77 units/L (5-40) H 02/01/19 09:20 ALT 56 units/L (7-56) 02/01/19 09:20 36 units/L (35-129) 02/01/19 09:20 40.0 umol/L (25-60) 01/31/19 11:10 < 0.010 ng/mL (0.00-0.029) 01/31/19 10:49 6.3 g/dL (6.3-8.2) 02/01/19 09:20 3.2 g/dL (3.9-5) L 02/01/19 09:20 1.0 % 02/01/19 09:20 Amylase 75 units/L (27-131) 02/02/19 10:35 24 units/L (13-60) 02/02/19 10:35 TSH 8.240 mlU/mL (0.270-4.200) H 01/31/19 11:10 HCG, Qual Negative (Negative) 02/02/19 10:35 Maddy (Yellow) 01/31/19 Unknown Clear (Clear) 01/31/19 Unknown 5.0 (5.0-7.0) 01/31/19 Unknown Ur Specific [place] 1.025 (1.003-1.030) 01/31/19 Unknown <15 mg/dl mg/dL (Negative) 01/31/19 Unknown Neg mg/dL (Negative) 01/31/19 Unknown Tr mg/dL (Negative) 01/31/19 Unknown Neg (Negative) 01/31/19 Unknown Neg (Negative) 01/31/19 Unknown Neg (Negative) 01/31/19 Unknown 4.0 mg/dL (<2.0) 01/31/19 Unknown Ur Leukocyte Esterase Neg (Negative) 01/31/19 Unknown 2.0 /HPF (0.0-6.0) 01/31/19 Unknown 3.0 /HPF (0.0-6.0) 01/31/19 Unknown U Epithel Cells (Auto) < 1.0 /HPF (0-13.0) 01/31/19 Unknown 1+ /HPF 01/31/19 Unknown Salicylates < 0.3 mg/dL (2.8-20.0) L 01/31/19 10:49 Presumptive negative 01/31/19 Unknown Presumptive negative 01/31/19 Unknown Acetaminophen < 5.0 ug/mL (10.0-30.0) L 01/31/19 11:10 Ur Barbiturates Screen Presumptive negative 01/31/19 Unknown Valproic Acid 71.5 ug/mL (50-100) 01/31/19 10:49 Ur Phencyclidine Scrn Presumptive negative 01/31/19 Unknown Ur Amphetamines Screen Presumptive negative 01/31/19 Unknown U Benzodiazepines Scrn Presumptive negative 01/31/19 Unknown [place] 0.6 mmol/L (0.0-1.2) 02/01/19 09:20 Presumptive negative 01/31/19 Unknown U Marijuana (THC) Screen Presumptive negative 01/31/19 Unknown Disclamer 01/31/19 Unknown Plasma/Serum Alcohol < 0.01 % (0-0.07) 01/31/19 10:49 Active Medications - Current Medications Current Medications: Generic Name Dose Route Start Last Admin Trade Name Freq PRN Reason Stop Dose Admin Acetaminophen 650 mg 01/31/19 21:11 Tylenol PO Q4H PRN Pain MILD(1-3)/Fever >100.5/PASCUAL Benztropine Mesylate 0.5 mg 01/31/19 22:00 02/01/19 22:36 Cogentin PO 0.5 mg BID CHAI Administration Divalproex Sodium 500 mg 02/01/19 10:00 02/01/19 09:46 Depakote Er PO 500 mg QDAY CHAI Administration Enoxaparin Sodium 40 mg 02/01/19 22:00 02/01/19 22:36 Lovenox SUB-Q 40 mg QDAY@2200 CHAI Administration Famotidine 20 mg 02/01/19 22:00 02/01/19 22:36 Pepcid PO 20 mg BID CHAI Administration Hydromorphone HCl 0.5 mg 01/31/19 21:11 Dilaudid IV Q3H PRN Pain , Severe (7-10) Sodium Chloride 1,000 mls @ 125 mls/hr 01/31/19 19:00 02/02/19 02:47 Nacl 0.9% 1000 Ml IV 125 mls/hr DIRECT CHAI Administration Ceftriaxone Sodium 2 gm in 100 mls @ 200 mls/hr 01/31/19 22:00 02/01/19 09:47 Rocephin/Ns 2 Gm/100 Ml IV 200 mls/hr Q24HR CHAI Administration Protocol [place] Carbonate 450 mg 02/01/19 10:00 02/01/19 09:51 Eskalith PO 450 mg QAM CHAI Administration Ondansetron HCl 4 mg 01/31/19 21:11 Zofran IV Q8H PRN Nausea And Vomiting Risperidone 3 mg 01/31/19 22:00 02/01/19 22:36 Risperdal PO Not Given QHS CHAI Sodium Chloride 10 ml 01/31/19 22:00 02/01/19 22:37 Sodium Chloride Flush Syringe 10 Ml IV 10 ml BID CHAI Administration Sodium Chloride 10 ml 01/31/19 21:11 Sodium Chloride Flush Syringe 10 Ml IV PRN PRN LINE FLUSH
[2019-02-02] MEDS: ROCEPHIN/NS 2 GM/100 ML 2 GM/100 ML BAG IV SCH (12:33)
[2019-02-02] MEDS: ESKALITH PO SCH ×2 (12:33→13:03)
[2019-02-02] MEDS: PEPCID PO SCH ×2 (12:34→23:42)
[2019-02-02] MEDS: COGENTIN PO SCH ×2 (12:34→23:43)
[2019-02-02] MEDS: SODIUM CHLORIDE FLUSH SYRINGE 10 ML IV SCH ×2 (12:35→23:45)
[2019-02-02] MEDS: LITHOBID ER PO SCH (12:57)
--- NOTE | 2019-02-02 14:58 | Progress Note ---
Subjective - Reason for Consult Consult date: 02/02/19 Reason for consult: Psychiatry Follow-up - Chief Complaint Chief complaint: "The patient was asleep" 28-year-old female who presented to the ER for AMS. Today the patient would not stay awake to be assessed. Collateral information was gathered from her court appointed guardian Ms. Mackey who was at the bedside. She stated that the patient has a hx of Bipolar DO and receive the monthly Invega injection. She stated that the patient also take both Depakote and Sublimity along with Risperdal by mouth. She stated the that patient attend a day program during the day and reside at a longterm currently. She stated that the patient is seen by [facility] ([facility]) for outpatient psy services. Mental Status Exam - Vital signs Last Vital Signs Temp 98.1 F 02/02/19 12:51 Pulse 61 02/02/19 12:51 Resp 15 02/02/19 12:51 BP 149/75 02/02/19 12:51 Pulse Ox 95 02/02/19 12:51 - Exam Narrative exam: Unable to complete the MSE because the patient could not stay awake. Assessment and Plan Impression: Today the patient could not stay awake during the assessment. Recommendation/Plan: Reassess the patient in 24 hours. Continue home medications (Sublimity, Depokote, Risperdal, and Cogentin). The patient receive the monthly Invega injection per [facility] ([facility]). Dispo: The patient can follow up with [facility] for outpatient psy services. Staffed with Dr. Ele Meraz.
[2019-02-02] MEDS: LOVENOX SUB-Q SCH (23:43)
[2019-02-02] MEDS: RisperDAL PO SCH (23:44)
[2019-02-03] MEDS: PEPCID PO SCH (09:41)
[2019-02-03] MEDS: COGENTIN PO SCH (09:41)
[2019-02-03] MEDS: SODIUM CHLORIDE FLUSH SYRINGE 10 ML IV SCH (09:42)
[2019-02-03] MEDS: ROCEPHIN/NS 2 GM/100 ML 2 GM/100 ML BAG IV SCH (09:42)
[2019-02-03] MEDS: LITHOBID ER PO SCH (09:44)
--- NOTE | 2019-02-03 11:52 | Progress Note ---
Subjective - Reason for Consult Consult date: 02/03/19 Reason for consult: Psychiatry Follow-up - Chief Complaint Chief complaint: "I feel much better"" 28-year-old female who presented to the ER for AMS. Today the patient was calm and cooperative during the assessment, She was awake and not lethargic during the the interview. She was asked about her admission to the hospital, she stated, "I was sick." She stated that she is seen by [facility] for outpatient psy services and receive the monthly Invega injection. She stated that she received the Invega injection last week. She stated hat she take [place] and Depakote. She denies taking Risperdal by mouth when asked. She denies SI/HI's and AVH's. She denies any side effects from her medications. Mental Status Exam - Vital signs Last Vital Signs Temp 98.0 F 02/03/19 05:19 Pulse 59 L 02/03/19 05:19 Resp 20 02/03/19 05:19 BP 141/82 02/03/19 05:19 Pulse Ox 99 02/03/19 05:19 - Exam Narrative exam: MSE: Appearance: calm Behavior: regular eye contact Speech: regular rate and tone Mood: "okay" Affect: congruent to mood Thought Process: circumstantial Thought Content: denies SI/HI's and AVH's Motor Activity: sitting up in bed Cognition: A/O x3 Insight: variable to fair Judgment: fair Assessment and Plan Impression: Today the patient was calm and cooperative during the assessment. Recommendation/Plan: Continue home medications [place] 450 mg PO daily for mood, Depakote 500 mg PO daily for mood, and Cogentin 0.5 mg PO BID for EPS prevention. Also, the patient receive the monthly Invega injection. D/C'd Risperdal. Psy signs off. Dispo: The patient can follow up with [facility] for outpatient osy services. Will staff with Dr. Ele Meraz.
[2019-02-03 13:02] VITALS: BP 146/83
--- NOTE | 2019-02-03 14:07 | Discharge Summary ---
Providers - Providers Date of Admission: 01/31/19 14:05 Date of discharge: 02/03/19 Attending physician: DELAI CADET 01/31/19 12:27 Consult to Mental Health [CONS] Stat Reason For Exam: AMS, bipolar d/o, schizophrenia Place consult to:: MEHRDAD equipment service technician Notified:: zulema 01/31/19 21:32 Consult to Mental Health [CONS] Routine Reason For Exam: AMS Place consult to:: chrissy/mehrdad Notified:: mehrdad Phone number called:: [phone] Was contact made?: No Time called:: 08:57 Comment:: no answer 02/02/19 18:07 Physical Therapy Evaluation and Treat [CONS] Routine Comment: Reason For Exam: morbid obesity/gen debility [facility] Condition: Stable Disposition: DC-30 STILL A PATIENT Exam - Constitutional Vitals: Temp Pulse Resp BP Pulse Ox 97.7 F 56 L 16 146/83 99 02/03/19 12:46 02/03/19 12:46 02/03/19 12:46 02/03/19 12:46 02/03/19 12:46 Plan Activity: no restrictions Diet: regular Additional Instructions: Advised to follow [facility] as outpatient in3-5 days. or f/u [facility] behavioral health in 3-5 days. Patient advised to see [ Pulmonary ] outpatient sleep studies to rule out obstructive sleep apnea Follow up with: AMOS MATHISCOVINA MD SHEILA [Primary Care Provider] - 7 Days ARNOL LEAL MD [Staff Physician] - 7 Days
== END 2019-02-03 18:30 | disposition home or self-care (01) | DRG 640 ==
LOC: ED 10:11 → 3A 14:05
PROVIDERS: ADMIT Internal Medicine; ATTEND Internal Medicine
DX: E87.1 Hypo-osmolality and hyponatremia (principal); G93.41 Metabolic encephalopathy; E86.0 Dehydration; F31.9 Bipolar disorder, unspecified; F20.9 Schizophrenia, unspecified; F17.200 Nicotine dependence, unspecified, uncomplicated; Z79.899 Other long term (current) drug therapy
CPT/HCPCS: 36415; 70450; 71045; 80048; 80053; 80164; 80178; 80307; 80320; 81001; 82140; 82150; 82803; 82962; 83036; 83690; 84443; 84484; 84703; 85025; 87040; 87086; 93005; 93010; 96360; 96361; G0378; G0480; J0696; J1650; J7030

== ENCOUNTER 2019-05-26 11:00 | Outpatient (CLI) | payer MEDICAID | END 2019-05-26 11:01 | disposition home or self-care (01) | LOC: SLR 11:00 | PROVIDERS: ATTEND Specialist | DX: G47.33 Obstructive sleep apnea (adult) (pediatric) (principal); N89.8 Other specified noninflammatory disorders of vagina; E66.9 Obesity, unspecified | CPT/HCPCS: G0399 ==

== ENCOUNTER 2022-02-12 20:19 | Emergency (ER) | payer MEDICAID ==
[2022-02-12] MEDS ORDERED: ZIPRASIDONE MESYLATE 20 MG VIAL IM ONE (21:06)
[2022-02-12] MEDS ORDERED: diphenhydrAMINE 50 MG/ML VIAL IM ONE (21:09)
--- NOTE | 2022-02-12 21:17 | Emergency Department Report ---
ED Psych HPI - General Stated Complaint: VIOLENT, AGGRESSIVE Time Seen by Provider: 02/12/22 21:08 Source: patient, old records reviewed Mode of arrival: Ambulatory Limitations: Altered Mental Status - History of Present Illness Initial Comments: 31-year-old white female with a history of schizophrenia, bipolar disorder, lives in psych shelter, brought by provider because she is altered screaming and having agitated behavior. They denied her having any trauma or fever or chills. MD Complaint: altered mental status -: Gradual, week(s) Associated Psychiatric Symptoms: racing thoughts, auditory hallucinations, delusions History of same: Yes Quality: getting worse Improves With: medication Context: not taking psychiatric Associated Symptoms: confusion Treatments Prior to Arrival: none - Related Data Home Medications Medication Instructions Recorded Confirmed Last Taken Benztropine [Cogentin] 0.5 mg PO BID 01/31/19 01/31/19 Unknown Divalproex ER [Depakote ER] 500 mg PO QDAY 01/31/19 01/31/19 Unknown [place] Carbonate ER 450 mg PO QAM 02/02/19 02/02/19 Unknown Allergies Allergy/AdvReac Type Severity Reaction Status Date / Time No Known Allergies Allergy Verified 04/24/17 11:38 ED Review of Systems ROS: Stated complaint: VIOLENT, AGGRESSIVE Other details as noted in HPI ED Past Medical Hx - Past Medical History Hx Psychiatric Treatment: Yes (Schizophrenia, BiPolar) - Social History Smoking Status: Never Smoker - Medications Home Medications: Home Medications Medication Instructions Recorded Confirmed Last Taken Type Benztropine [Cogentin] 0.5 mg PO BID 01/31/19 01/31/19 Unknown History Divalproex ER [Depakote ER] 500 mg PO QDAY 01/31/19 01/31/19 Unknown History [place] Carbonate ER 450 mg PO QAM 02/02/19 02/02/19 Unknown History ED Physical Exam - General Limitations: No Limitations General appearance: alert - Head Head exam: Present: atraumatic, normocephalic, normal inspection - Eye Eye exam: Present: normal appearance, PERRL Pupils: Present: normal accommodation - ENT ENT exam: Present: normal exam, normal orophraynx - Neck Neck exam: Present: normal inspection - Respiratory Respiratory exam: Present: normal lung sounds bilaterally - Cardiovascular Cardiovascular Exam: Present: regular rate, normal rhythm, normal heart sounds - GI/Abdominal GI/Abdominal exam: Present: soft, normal bowel sounds. Absent: distended, tenderness, guarding - Back Exam Back exam: Present: normal inspection, full ROM - Neurological Exam Neurological exam: Present: alert, CN II-XII intact, normal gait. Absent: motor sensory deficit - Psychiatric Psychiatric exam: Present: agitated, anxious, manic - Skin Skin exam: Present: warm, dry, intact ED Course Vital Signs 02/12/22 20:37 Temperature 98.3 F Pulse Rate 89 Respiratory 18 Rate Blood Pressure 141/100 O2 Sat by Pulse 98 Oximetry Critical care attestation.: If time is entered above; I have spent that time in minutes in the direct care of this critically ill patient, excluding procedure time. ED Disposition Condition: Stable
[2022-02-12 22:10] LABS: Basophils # (Auto) 0.1 K/mm3 (0.0-0.1); Eosinophils # (Auto) 0.1 K/mm3 (0.0-0.4); Eosinophils % (Auto) 1.1 % (0.0-4.3); Hematocrit 36.7 % (30.3-42.9); Lymphocytes # (Auto) 3.1 K/mm3 (1.2-5.4); Lymphocytes % (Auto) 31.5 % (13.4-35.0); Mean Corpuscular HGB Conc 33 % (30-34); Mean Corpuscular Volume 86 fl (79-97); Monocytes # (Auto) 0.7 K/mm3 (0.0-0.8); Monocytes % (Auto) 6.9 % (0.0-7.3); Platelet Count 276 K/mm3 (140-440); Red Blood Count 4.29 M/mm3 (3.65-5.03); Red Cell Distribution Width 13.5 % (13.2-15.2)
[2022-02-12 22:25] LABS: BUN/Creatinine Ratio 26; Blood Urea Nitrogen 21 mg/dL (7-17); Calcium 9.5 mg/dL (8.4-10.2); Hemolysis Index 2
[2022-02-13 08:13] LABS: Amphetamine Screen,Urine Negative; Benzodiazepines Screen,Urine Negative; Cannabinoid Screen,Urine Negative; Cocaine Screen,Urine Negative; Methadone Screen,Urine Negative; Opiate Screen,Urine Negative
[2022-02-13 08:15] LABS: Mucus,Urine FEW /HPF
[2022-02-13 08:41] LABS: Bilirubin,Urine Negative (Negative); Blood,Urine Negative (Negative); Color,Urine Straw (Yellow); Urobilinogen,Urine < 2.0 mg/dL (<2.0)
--- NOTE | 2022-02-13 11:24 | Consultation ---
History of Present Illness - Reason for Consult Consult date: 02/13/22 Reason for consult: psychosis - History of Present Psychiatric Illness The patient was seen today. She is hyperverbal, having flight of ideas, delusional and speaking nonsensically. The patient is talking about some boy who scratched her. She is moving about and moving her hands around. She then says "I'm a dike but I know you don't want no body like me." She is talking about being and wanting to feed her baby sausage. The patient then says to one of security, "you got minutes to get out or I'm gone blow up." She starts counting out loud. The patient says she has a history of schizophrenia. She denies SI/HI or hallucinations. She then starts talking out loud and calling the names of other people. PAST PSYCHIATRIC HISTORY: Diagnoses: Schizophrenia Suicide attempts or Self-harm behavior: Denies Prior psychiatric hospitalizations: Yes Substance Abuse history: Denies Previous psychiatric medications tried: [place], seroquel Outpatient treatment: no PAST MEDICAL HISTORY: None reported Family Psychiatric History: None reported or documented SOCIAL HISTORY Marital Status: Single Living Arrangements: shelter Employment Status: disabled Access to guns/weapons: Denies Education: History of Abuse: Denies Legal History: Denies REVIEW OF SYSTEMS Constitutional: Negative for weight loss ENT: Negative for stridor Respiratory: Negative for cough or hemoptysis All other systems reviewed and are negative MENTAL STATUS General Appearance and Behavior: age appropriate, good eye contact, hyperactive, loud, cooperative Cooperation: Cooperative Psychomotor Behavior: within normal limits Mood: okay Affect and affective range: Congruent with stated mood Thought Process: flight of ideas, circumstantial, illogical Thought Content: delusions, hallucinations Speech: loud, nonsensical Suicidal Ideation: Denies Homicidal Ideation: Denies HI Hallucinations: Yes Delusions: Yes Impulse Control: Limited Insight and Judgment: Limited Memory: Limited Attention: Distracted Orientation: alert and oriented Diagnoses: Schizophrenia Treatment Plan 1013 Restart home meds Start Seroquel 50mg po BID Medical: per primary Disposition: recommend acute psychiatric treatment Will follow. Thanks Case staffed with Dr. Martin Medications and Allergies Allergies Allergy/AdvReac Type Severity Reaction Status Date / Time No Known Allergies Allergy Verified 04/24/17 11:38 Home Medications Medication Instructions Recorded Confirmed Last Taken Type Benztropine [Cogentin] 0.5 mg PO BID 01/31/19 01/31/19 Unknown History Divalproex ER [Depakote ER] 500 mg PO QDAY 01/31/19 01/31/19 Unknown History [place] Carbonate ER 450 mg PO QAM 02/02/19 02/02/19 Unknown History Mental Status Exam - Vital signs Last Vital Signs Temp 98.2 F 02/13/22 09:06 Pulse 74 02/13/22 09:06 Resp 18 02/13/22 09:06 BP 137/92 02/13/22 09:06 Pulse Ox 100 02/13/22 09:06 Results Result Diagrams: 02/12/22 21:25 02/12/22 21:25 Abnormal lab results 02/12/22 02/12/22 02/12/22 Range/Units 21:25 21:25 21:25 Carbon Dioxide 20 L (22-30) mmol/L BUN 21 H (7-17) mg/dL Salicylates < 0.3 L (2.8-20.0) mg/dL Acetaminophen 5.0 L (10.0-30.0) ug/mL Valproic Acid < 2.8 L (50-100) ug/mL All other labs normal.
[2022-02-13] MEDS ORDERED: LITHIUM CARBONATE 450 MG PO SCH (11:32)
[2022-02-13] MEDS: BENZTROPINE 0.5 MG TAB PO SCH ×2 (11:50→21:32)
[2022-02-13] MEDS: QUEtiapine 25 MG TAB PO SCH ×2 (11:51→21:32)
[2022-02-13] MEDS ORDERED: LITHIUM CARBONATE ER 450 MG TAB PO SCH (13:00)
--- NOTE | 2022-02-13 18:02 | Event Note ---
Date: 02/13/22 Patient seen and examined. She is acutely psychotic. She is walking around with socks on her head. She has taken toothpaste, and put it on her face. Have instructed nursing team to take socks away. Laboratory studies, psychiatric documentation and initial ER documentation are reviewed and appreciated. Laboratory studies are reviewed and appreciated. test is ordered. Patient does not appear to be in any acute distress at this time Vital Signs 02/12/22 02/12/22 02/12/22 20:37 21:12 21:15 Temperature 98.3 F 9739 F H Pulse Rate 89 100 H Respiratory 18 22 Rate Blood Pressure 141/100 Blood Pressure 148/99 [Left] O2 Sat by Pulse 98 100 100 Oximetry 02/13/22 02/13/22 02/13/22 08:09 09:06 17:09 Temperature 98.2 F 98.6 F Pulse Rate 74 84 Respiratory 18 20 Rate Blood Pressure Blood Pressure 137/92 138/91 [Left] O2 Sat by Pulse 100 100 100 Oximetry Please note that temperature documented of 9739 F, on February 13, 2012, at 21: 15 is most likely an error. Lab Results 02/12/22 02/12/22 02/12/22 Range/Units 21:25 21:25 21:25 WBC 9.7 (4.5-11.0) K/mm3 RBC 4.29 (3.65-5.03) M/mm3 Hgb 12.0 (10.1-14.3) gm/dl Hct 36.7 (30.3-42.9) % MCV 86 (79-97) fl MCH 28 (28-32) pg MCHC 33 (30-34) % RDW 13.5 (13.2-15.2) % Plt Count 276 (140-440) K/mm3 Lymph % (Auto) 31.5 (13.4-35.0) % [place] % (Auto) 6.9 (0.0-7.3) % Eos % (Auto) 1.1 (0.0-4.3) % Baso % (Auto) 1.0 (0.0-1.8) % Lymph # (Auto) 3.1 (1.2-5.4) K/mm3 [place] # (Auto) 0.7 (0.0-0.8) K/mm3 Eos # (Auto) 0.1 (0.0-0.4) K/mm3 Baso # (Auto) 0.1 (0.0-0.1) K/mm3 Seg Neutrophils % 59.5 (40.0-70.0) % Seg Neutrophils # 5.8 (1.8-7.7) K/mm3 Sodium 138 (137-145) mmol/L Potassium 3.9 (3.6-5.0) mmol/L Chloride 105.1 (98-107) mmol/L Carbon Dioxide 20 L (22-30) mmol/L Anion Gap 17 mmol/L BUN 21 H (7-17) mg/dL Creatinine 0.8 (0.6-1.2) mg/dL Estimated GFR > 60 ml/min BUN/Creatinine Ratio 26 % Glucose 97 (65-100) mg/dL Calcium 9.5 (8.4-10.2) mg/dL Urine Color (Yellow) Urine Turbidity (Clear) Urine pH (5.0-7.0) Ur Specific [place] (1.003-1.030) Urine Protein (Negative) mg/dL Urine Glucose (UA) (Negative) mg/dL Urine Ketones (Negative) mg/dL Urine Blood (Negative) Urine Nitrite (Negative) Ur Reducing Substances Urine Bilirubin (Negative) Urine Ictotest Urine Urobilinogen (<2.0) mg/dL Ur Leukocyte Esterase (Negative) Urine WBC (Auto) (0.0-6.0) /HPF Urine RBC (Auto) (0.0-6.0) /HPF U Epithel Cells (Auto) (0-13.0) /HPF Urine Mucus /HPF Salicylates < 0.3 L (2.8-20.0) mg/dL Urine Opiates Screen Urine Methadone Screen Acetaminophen (10.0-30.0) ug/mL Ur Barbiturates Screen Valproic Acid < 2.8 L (50-100) ug/mL Ur Phencyclidine Scrn Ur Amphetamines Screen U Benzodiazepines Scrn [place] 0.2 (0.0-1.2) mmol/L Urine Cocaine Screen U Marijuana (THC) Screen Drugs of Abuse Note SARS-CoV-2 (PCR) (Negative) 02/12/22 02/13/22 02/13/22 Range/Units 21:25 07:19 07:30 WBC (4.5-11.0) K/mm3 RBC (3.65-5.03) M/mm3 Hgb (10.1-14.3) gm/dl Hct (30.3-42.9) % MCV (79-97) fl MCH (28-32) pg MCHC (30-34) % RDW (13.2-15.2) % Plt Count (140-440) K/mm3 Lymph % (Auto) (13.4-35.0) % [place] % (Auto) (0.0-7.3) % Eos % (Auto) (0.0-4.3) % Baso % (Auto) (0.0-1.8) % Lymph # (Auto) (1.2-5.4) K/mm3 [place] # (Auto) (0.0-0.8) K/mm3 Eos # (Auto) (0.0-0.4) K/mm3 Baso # (Auto) (0.0-0.1) K/mm3 Seg Neutrophils % (40.0-70.0) % Seg Neutrophils # (1.8-7.7) K/mm3 Sodium (137-145) mmol/L Potassium (3.6-5.0) mmol/L Chloride (98-107) mmol/L Carbon Dioxide (22-30) mmol/L Anion Gap mmol/L BUN (7-17) mg/dL Creatinine (0.6-1.2) mg/dL Estimated GFR ml/min BUN/Creatinine Ratio % Glucose (65-100) mg/dL Calcium (8.4-10.2) mg/dL Urine Color Straw (Yellow) Urine Turbidity Slightly cloudy (Clear) Urine pH 5.0 (5.0-7.0) Ur Specific [place] 1.015 (1.003-1.030) Urine Protein 30 mg/dl (Negative) mg/dL Urine Glucose (UA) Negative (Negative) mg/dL Urine Ketones Negative (Negative) mg/dL Urine Blood Negative (Negative) Urine Nitrite Negative (Negative) Ur Reducing Substances Not Reportable Urine Bilirubin Negative (Negative) Urine Ictotest Not Reportable Urine Urobilinogen < 2.0 (<2.0) mg/dL Ur Leukocyte Esterase Negative (Negative) Urine WBC (Auto) 1.0 (0.0-6.0) /HPF Urine RBC (Auto) 1.0 (0.0-6.0) /HPF U Epithel Cells (Auto) 4.0 (0-13.0) /HPF Urine Mucus Few /HPF Salicylates (2.8-20.0) mg/dL Urine Opiates Screen Negative Urine Methadone Screen Negative Acetaminophen 5.0 L (10.0-30.0) ug/mL Ur Barbiturates Screen Negative Valproic Acid (50-100) ug/mL Ur Phencyclidine Scrn Negative Ur Amphetamines Screen Negative U Benzodiazepines Scrn Negative [place] (0.0-1.2) mmol/L Urine Cocaine Screen Negative U Marijuana (THC) Screen Negative Drugs of Abuse Note Disclamer SARS-CoV-2 (PCR) (Negative) 02/13/22 Range/Units 07:51 WBC (4.5-11.0) K/mm3 RBC (3.65-5.03) M/mm3 Hgb (10.1-14.3) gm/dl Hct (30.3-42.9) % MCV (79-97) fl MCH (28-32) pg MCHC (30-34) % RDW (13.2-15.2) % Plt Count (140-440) K/mm3 Lymph % (Auto) (13.4-35.0) % [place] % (Auto) (0.0-7.3) % Eos % (Auto) (0.0-4.3) % Baso % (Auto) (0.0-1.8) % Lymph # (Auto) (1.2-5.4) K/mm3 [place] # (Auto) (0.0-0.8) K/mm3 Eos # (Auto) (0.0-0.4) K/mm3 Baso # (Auto) (0.0-0.1) K/mm3 Seg Neutrophils % (40.0-70.0) % Seg Neutrophils # (1.8-7.7) K/mm3 Sodium (137-145) mmol/L Potassium (3.6-5.0) mmol/L Chloride (98-107) mmol/L Carbon Dioxide (22-30) mmol/L Anion Gap mmol/L BUN (7-17) mg/dL Creatinine (0.6-1.2) mg/dL Estimated GFR ml/min BUN/Creatinine Ratio % Glucose (65-100) mg/dL Calcium (8.4-10.2) mg/dL Urine Color (Yellow) Urine Turbidity (Clear) Urine pH (5.0-7.0) Ur Specific [place] (1.003-1.030) Urine Protein (Negative) mg/dL Urine Glucose (UA) (Negative) mg/dL Urine Ketones (Negative) mg/dL Urine Blood (Negative) Urine Nitrite (Negative) Ur Reducing Substances Urine Bilirubin (Negative) Urine Ictotest Urine Urobilinogen (<2.0) mg/dL Ur Leukocyte Esterase (Negative) Urine WBC (Auto) (0.0-6.0) /HPF Urine RBC (Auto) (0.0-6.0) /HPF U Epithel Cells (Auto) (0-13.0) /HPF Urine Mucus /HPF Salicylates (2.8-20.0) mg/dL Urine Opiates Screen Urine Methadone Screen Acetaminophen (10.0-30.0) ug/mL Ur Barbiturates Screen Valproic Acid (50-100) ug/mL Ur Phencyclidine Scrn Ur Amphetamines Screen U Benzodiazepines Scrn [place] (0.0-1.2) mmol/L Urine Cocaine Screen U Marijuana (THC) Screen Drugs of Abuse Note SARS-CoV-2 (PCR) Negative (Negative)
[2022-02-13] MEDS: LORazepam 2 MG/ML VIAL IM PRN (18:08)
[2022-02-13 18:13] LABS: HCG Qualitative,Urine Negative (Negative)
--- NOTE | 2022-02-14 09:43 | Progress Note ---
Subjective - Reason for Consult Consult date: 02/14/22 Reason for consult: psychosis - Chief Complaint Chief complaint: The patient was seen today. She was observed dancing in the middle of the floor. She is still acutely psychotic. Her speech is nonsensical and she is difficult to follow. The patient is having flight of ideas. She is talking about cars, t.v. and other things back and forth. She says "I own the [place], the [employer], and I'm the president." She tells the nurse "you look better than before." She then stops and says "am I in trouble." The patient then starts ranting off a list of non relevant things and topics. REVIEW OF SYSTEMS Constitutional: Negative for weight loss ENT: Negative for stridor Respiratory: Negative for cough or hemoptysis All other systems reviewed and are negative MENTAL STATUS General Appearance and Behavior: age appropriate, good eye contact, hyperactive, loud, cooperative Cooperation: Cooperative Psychomotor Behavior: within normal limits Mood: okay Affect and affective range: Congruent with stated mood Thought Process: flight of ideas, circumstantial, illogical Thought Content: delusions, hallucinations Speech: loud, nonsensical Suicidal Ideation: Denies Homicidal Ideation: Denies HI Hallucinations: Yes Delusions: Yes Impulse Control: Limited Insight and Judgment: Limited Memory: Limited Attention: Distracted Orientation: alert and oriented Diagnoses: Schizophrenia Treatment Plan 1013 Increase [place] 450mg po BID Increase Seroquel 100mg po BID Medical: per primary Disposition: recommend acute psychiatric treatment Will follow. Thanks Case staffed with Dr. Martin Mental Status Exam - Vital signs Last Vital Signs Temp 98.2 F 02/13/22 21:00 Pulse 78 02/13/22 21:00 Resp 16 02/13/22 21:00 BP 130/79 02/13/22 21:00 Pulse Ox 97 02/13/22 21:00
[2022-02-14] MEDS: QUEtiapine 100 MG TAB PO SCH ×2 (10:22→22:14)
[2022-02-14] MEDS: LITHIUM CARBONATE ER 450 MG TAB PO SCH ×2 (10:22→22:14)
[2022-02-14] MEDS: BENZTROPINE 0.5 MG TAB PO SCH ×2 (10:22→22:14)
[2022-02-14] MEDS: LORazepam 2 MG/ML VIAL IM PRN (14:04)
--- NOTE | 2022-02-14 17:11 | Event Note ---
Date: 02/14/22 Patient seen and examined. She remains acutely psychotic. She is not violent or combative. She remains medically suitable for psychiatric placement and disposition. Vital Signs 02/12/22 02/12/22 02/12/22 20:37 21:12 21:15 Temperature 98.3 F 9739 F H Pulse Rate 89 100 H Respiratory 18 22 Rate Blood Pressure 141/100 Blood Pressure 148/99 [Left] O2 Sat by Pulse 98 100 100 Oximetry 02/13/22 02/13/22 02/13/22 08:09 09:06 17:09 Temperature 98.2 F 98.6 F Pulse Rate 74 84 Respiratory 18 20 Rate Blood Pressure Blood Pressure 137/92 138/91 [Left] O2 Sat by Pulse 100 100 100 Oximetry 02/13/22 02/14/22 02/14/22 21:00 10:46 10:47 Temperature 98.2 F 97.3 F L Pulse Rate 78 89 Respiratory 16 18 Rate Blood Pressure Blood Pressure 130/79 123/87 [Left] O2 Sat by Pulse 97 99 99 Oximetry Lab Results 02/12/22 02/12/22 02/12/22 Range/Units 21:25 21:25 21:25 WBC 9.7 (4.5-11.0) K/mm3 RBC 4.29 (3.65-5.03) M/mm3 Hgb 12.0 (10.1-14.3) gm/dl Hct 36.7 (30.3-42.9) % MCV 86 (79-97) fl MCH 28 (28-32) pg MCHC 33 (30-34) % RDW 13.5 (13.2-15.2) % Plt Count 276 (140-440) K/mm3 Lymph % (Auto) 31.5 (13.4-35.0) % [place] % (Auto) 6.9 (0.0-7.3) % Eos % (Auto) 1.1 (0.0-4.3) % Baso % (Auto) 1.0 (0.0-1.8) % Lymph # (Auto) 3.1 (1.2-5.4) K/mm3 [place] # (Auto) 0.7 (0.0-0.8) K/mm3 Eos # (Auto) 0.1 (0.0-0.4) K/mm3 Baso # (Auto) 0.1 (0.0-0.1) K/mm3 Seg Neutrophils % 59.5 (40.0-70.0) % Seg Neutrophils # 5.8 (1.8-7.7) K/mm3 Sodium 138 (137-145) mmol/L Potassium 3.9 (3.6-5.0) mmol/L Chloride 105.1 (98-107) mmol/L Carbon Dioxide 20 L (22-30) mmol/L Anion Gap 17 mmol/L BUN 21 H (7-17) mg/dL Creatinine 0.8 (0.6-1.2) mg/dL Estimated GFR > 60 ml/min BUN/Creatinine Ratio 26 % Glucose 97 (65-100) mg/dL Calcium 9.5 (8.4-10.2) mg/dL Urine Color (Yellow) Urine Turbidity (Clear) Urine pH (5.0-7.0) Ur Specific [place] (1.003-1.030) Urine Protein (Negative) mg/dL Urine Glucose (UA) (Negative) mg/dL Urine Ketones (Negative) mg/dL Urine Blood (Negative) Urine Nitrite (Negative) Ur Reducing Substances Urine Bilirubin (Negative) Urine Ictotest Urine Urobilinogen (<2.0) mg/dL Ur Leukocyte Esterase (Negative) Urine WBC (Auto) (0.0-6.0) /HPF Urine RBC (Auto) (0.0-6.0) /HPF U Epithel Cells (Auto) (0-13.0) /HPF Urine Mucus /HPF Urine HCG, Qual (Negative) Salicylates < 0.3 L (2.8-20.0) mg/dL Urine Opiates Screen Urine Methadone Screen Acetaminophen (10.0-30.0) ug/mL Ur Barbiturates Screen Valproic Acid < 2.8 L (50-100) ug/mL Ur Phencyclidine Scrn Ur Amphetamines Screen U Benzodiazepines Scrn [place] 0.2 (0.0-1.2) mmol/L Urine Cocaine Screen U Marijuana (THC) Screen Drugs of Abuse Note SARS-CoV-2 (PCR) (Negative) 02/12/22 02/13/22 02/13/22 Range/Units 21:25 07:19 07:30 WBC (4.5-11.0) K/mm3 RBC (3.65-5.03) M/mm3 Hgb (10.1-14.3) gm/dl Hct (30.3-42.9) % MCV (79-97) fl MCH (28-32) pg MCHC (30-34) % RDW (13.2-15.2) % Plt Count (140-440) K/mm3 Lymph % (Auto) (13.4-35.0) % [place] % (Auto) (0.0-7.3) % Eos % (Auto) (0.0-4.3) % Baso % (Auto) (0.0-1.8) % Lymph # (Auto) (1.2-5.4) K/mm3 [place] # (Auto) (0.0-0.8) K/mm3 Eos # (Auto) (0.0-0.4) K/mm3 Baso # (Auto) (0.0-0.1) K/mm3 Seg Neutrophils % (40.0-70.0) % Seg Neutrophils # (1.8-7.7) K/mm3 Sodium (137-145) mmol/L Potassium (3.6-5.0) mmol/L Chloride (98-107) mmol/L Carbon Dioxide (22-30) mmol/L Anion Gap mmol/L BUN (7-17) mg/dL Creatinine (0.6-1.2) mg/dL Estimated GFR ml/min BUN/Creatinine Ratio % Glucose (65-100) mg/dL Calcium (8.4-10.2) mg/dL Urine Color Straw (Yellow) Urine Turbidity Slightly cloudy (Clear) Urine pH 5.0 (5.0-7.0) Ur Specific [place] 1.015 (1.003-1.030) Urine Protein 30 mg/dl (Negative) mg/dL Urine Glucose (UA) Negative (Negative) mg/dL Urine Ketones Negative (Negative) mg/dL Urine Blood Negative (Negative) Urine Nitrite Negative (Negative) Ur Reducing Substances Not Reportable Urine Bilirubin Negative (Negative) Urine Ictotest Not Reportable Urine Urobilinogen < 2.0 (<2.0) mg/dL Ur Leukocyte Esterase Negative (Negative) Urine WBC (Auto) 1.0 (0.0-6.0) /HPF Urine RBC (Auto) 1.0 (0.0-6.0) /HPF U Epithel Cells (Auto) 4.0 (0-13.0) /HPF Urine Mucus Few /HPF Urine HCG, Qual (Negative) Salicylates (2.8-20.0) mg/dL Urine Opiates Screen Negative Urine Methadone Screen Negative Acetaminophen 5.0 L (10.0-30.0) ug/mL Ur Barbiturates Screen Negative Valproic Acid (50-100) ug/mL Ur Phencyclidine Scrn Negative Ur Amphetamines Screen Negative U Benzodiazepines Scrn Negative [place] (0.0-1.2) mmol/L Urine Cocaine Screen Negative U Marijuana (THC) Screen Negative Drugs of Abuse Note Disclamer SARS-CoV-2 (PCR) (Negative) 02/13/22 02/13/22 Range/Units 07:51 17:59 WBC (4.5-11.0) K/mm3 RBC (3.65-5.03) M/mm3 Hgb (10.1-14.3) gm/dl Hct (30.3-42.9) % MCV (79-97) fl MCH (28-32) pg MCHC (30-34) % RDW (13.2-15.2) % Plt Count (140-440) K/mm3 Lymph % (Auto) (13.4-35.0) % [place] % (Auto) (0.0-7.3) % Eos % (Auto) (0.0-4.3) % Baso % (Auto) (0.0-1.8) % Lymph # (Auto) (1.2-5.4) K/mm3 [place] # (Auto) (0.0-0.8) K/mm3 Eos # (Auto) (0.0-0.4) K/mm3 Baso # (Auto) (0.0-0.1) K/mm3 Seg Neutrophils % (40.0-70.0) % Seg Neutrophils # (1.8-7.7) K/mm3 Sodium (137-145) mmol/L Potassium (3.6-5.0) mmol/L Chloride (98-107) mmol/L Carbon Dioxide (22-30) mmol/L Anion Gap mmol/L BUN (7-17) mg/dL Creatinine (0.6-1.2) mg/dL Estimated GFR ml/min BUN/Creatinine Ratio % Glucose (65-100) mg/dL Calcium (8.4-10.2) mg/dL Urine Color (Yellow) Urine Turbidity (Clear) Urine pH (5.0-7.0) Ur Specific [place] (1.003-1.030) Urine Protein (Negative) mg/dL Urine Glucose (UA) (Negative) mg/dL Urine Ketones (Negative) mg/dL Urine Blood (Negative) Urine Nitrite (Negative) Ur Reducing Substances Urine Bilirubin (Negative) Urine Ictotest Urine Urobilinogen (<2.0) mg/dL Ur Leukocyte Esterase (Negative) Urine WBC (Auto) (0.0-6.0) /HPF Urine RBC (Auto) (0.0-6.0) /HPF U Epithel Cells (Auto) (0-13.0) /HPF Urine Mucus /HPF Urine HCG, Qual Negative (Negative) Salicylates (2.8-20.0) mg/dL Urine Opiates Screen Urine Methadone Screen Acetaminophen (10.0-30.0) ug/mL Ur Barbiturates Screen Valproic Acid (50-100) ug/mL Ur Phencyclidine Scrn Ur Amphetamines Screen U Benzodiazepines Scrn [place] (0.0-1.2) mmol/L Urine Cocaine Screen U Marijuana (THC) Screen Drugs of Abuse Note SARS-CoV-2 (PCR) Negative (Negative)
--- NOTE | 2022-02-15 09:43 | Progress Note ---
Subjective - Reason for Consult Consult date: 02/15/22 Reason for consult: psychosis - Chief Complaint Chief complaint: The patient was seen today. Her thoughts are disorganized. She is speaking nonsensically. The patient is difficult to follow. She is grandiose. 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 The patient says "God lives within me." REVIEW OF SYSTEMS Constitutional: Negative for weight loss ENT: Negative for stridor Respiratory: Negative for cough or hemoptysis All other systems reviewed and are negative MENTAL STATUS General Appearance and Behavior: age appropriate, good eye contact, hyperactive, loud, cooperative Cooperation: Cooperative Psychomotor Behavior: within normal limits Mood: good Affect and affective range: Congruent with stated mood Thought Process: flight of ideas, circumstantial, illogical Thought Content: delusions, hallucinations Speech: loud, nonsensical Suicidal Ideation: Denies Homicidal Ideation: Denies HI Hallucinations: Yes Delusions: Yes, grandiose Impulse Control: Limited Insight and Judgment: Limited Memory: Limited Attention: Distracted Orientation: alert and oriented Diagnoses: Schizophrenia Treatment Plan 1013 Start Klonopin 0.25mg po BID x 3 days Continue [place] 450mg po BID Increase Seroquel 200mg po BID Medical: per primary Disposition: recommend acute psychiatric treatment Will follow. Thanks Case staffed with Dr. Martin Mental Status Exam - Vital signs Last Vital Signs Temp 97.7 F 02/14/22 22:19 Pulse 80 02/14/22 22:19 Resp 18 02/14/22 22:19 BP 141/98 02/14/22 22:19 Pulse Ox 100 02/14/22 22:19
[2022-02-15] MEDS: LITHIUM CARBONATE ER 450 MG TAB PO SCH (09:53)
[2022-02-15] MEDS: BENZTROPINE 0.5 MG TAB PO SCH (09:53)
[2022-02-15] MEDS: QUEtiapine 200 MG TAB PO SCH (10:49)
[2022-02-15] MEDS: clonazePAM 0.5 MG TAB PO SCH (10:49)
--- NOTE | 2022-02-15 12:42 | Event Note ---
Date: 02/15/22 Patient seen and examined. She is ambulatory. She remains acutely psychotic. She is not violent. Nursing team reports no concerning issues. Patient remains medically suitable for psychiatric placement, consultation and disposition. Vital Signs 02/12/22 02/12/22 02/12/22 20:37 21:12 21:15 Temperature 98.3 F 9739 F H Pulse Rate 89 100 H Respiratory 18 22 Rate Blood Pressure 141/100 Blood Pressure 148/99 [Left] O2 Sat by Pulse 98 100 100 Oximetry 02/13/22 02/13/22 02/13/22 08:09 09:06 17:09 Temperature 98.2 F 98.6 F Pulse Rate 74 84 Respiratory 18 20 Rate Blood Pressure Blood Pressure 137/92 138/91 [Left] O2 Sat by Pulse 100 100 100 Oximetry 02/13/22 02/14/22 02/14/22 21:00 10:46 10:47 Temperature 98.2 F 97.3 F L Pulse Rate 78 89 Respiratory 16 18 Rate Blood Pressure Blood Pressure 130/79 123/87 [Left] O2 Sat by Pulse 97 99 99 Oximetry 02/14/22 22:19 Temperature 97.7 F Pulse Rate 80 Respiratory 18 Rate Blood Pressure Blood Pressure 141/98 [Left] O2 Sat by Pulse 100 Oximetry Lab Results 02/12/22 02/12/22 02/12/22 Range/Units 21:25 21:25 21:25 WBC 9.7 (4.5-11.0) K/mm3 RBC 4.29 (3.65-5.03) M/mm3 Hgb 12.0 (10.1-14.3) gm/dl Hct 36.7 (30.3-42.9) % MCV 86 (79-97) fl MCH 28 (28-32) pg MCHC 33 (30-34) % RDW 13.5 (13.2-15.2) % Plt Count 276 (140-440) K/mm3 Lymph % (Auto) 31.5 (13.4-35.0) % Coke % (Auto) 6.9 (0.0-7.3) % Eos % (Auto) 1.1 (0.0-4.3) % Baso % (Auto) 1.0 (0.0-1.8) % Lymph # (Auto) 3.1 (1.2-5.4) K/mm3 [place] # (Auto) 0.7 (0.0-0.8) K/mm3 Eos # (Auto) 0.1 (0.0-0.4) K/mm3 Baso # (Auto) 0.1 (0.0-0.1) K/mm3 Seg Neutrophils % 59.5 (40.0-70.0) % Seg Neutrophils # 5.8 (1.8-7.7) K/mm3 Sodium 138 (137-145) mmol/L Potassium 3.9 (3.6-5.0) mmol/L Chloride 105.1 (98-107) mmol/L Carbon Dioxide 20 L (22-30) mmol/L Anion Gap 17 mmol/L BUN 21 H (7-17) mg/dL Creatinine 0.8 (0.6-1.2) mg/dL Estimated GFR > 60 ml/min BUN/Creatinine Ratio 26 % Glucose 97 (65-100) mg/dL Calcium 9.5 (8.4-10.2) mg/dL Urine Color (Yellow) Urine Turbidity (Clear) Urine pH (5.0-7.0) Ur Specific [place] (1.003-1.030) Urine Protein (Negative) mg/dL Urine Glucose (UA) (Negative) mg/dL Urine Ketones (Negative) mg/dL Urine Blood (Negative) Urine Nitrite (Negative) Ur Reducing Substances Urine Bilirubin (Negative) Urine Ictotest Urine Urobilinogen (<2.0) mg/dL Ur Leukocyte Esterase (Negative) Urine WBC (Auto) (0.0-6.0) /HPF Urine RBC (Auto) (0.0-6.0) /HPF U Epithel Cells (Auto) (0-13.0) /HPF Urine Mucus /HPF Urine HCG, Qual (Negative) Salicylates < 0.3 L (2.8-20.0) mg/dL Urine Opiates Screen Urine Methadone Screen Acetaminophen (10.0-30.0) ug/mL Ur Barbiturates Screen Valproic Acid < 2.8 L (50-100) ug/mL Ur Phencyclidine Scrn Ur Amphetamines Screen U Benzodiazepines Scrn [place] 0.2 (0.0-1.2) mmol/L Urine Cocaine Screen U Marijuana (THC) Screen Drugs of Abuse Note SARS-CoV-2 (PCR) (Negative) 02/12/22 02/13/22 02/13/22 Range/Units 21:25 07:19 07:30 WBC (4.5-11.0) K/mm3 RBC (3.65-5.03) M/mm3 Hgb (10.1-14.3) gm/dl Hct (30.3-42.9) % MCV (79-97) fl MCH (28-32) pg MCHC (30-34) % RDW (13.2-15.2) % Plt Count (140-440) K/mm3 Lymph % (Auto) (13.4-35.0) % [place] % (Auto) (0.0-7.3) % Eos % (Auto) (0.0-4.3) % Baso % (Auto) (0.0-1.8) % Lymph # (Auto) (1.2-5.4) K/mm3 [place] # (Auto) (0.0-0.8) K/mm3 Eos # (Auto) (0.0-0.4) K/mm3 Baso # (Auto) (0.0-0.1) K/mm3 Seg Neutrophils % (40.0-70.0) % Seg Neutrophils # (1.8-7.7) K/mm3 Sodium (137-145) mmol/L Potassium (3.6-5.0) mmol/L Chloride (98-107) mmol/L Carbon Dioxide (22-30) mmol/L Anion Gap mmol/L BUN (7-17) mg/dL Creatinine (0.6-1.2) mg/dL Estimated GFR ml/min BUN/Creatinine Ratio % Glucose (65-100) mg/dL Calcium (8.4-10.2) mg/dL Urine Color Straw (Yellow) Urine Turbidity Slightly cloudy (Clear) Urine pH 5.0 (5.0-7.0) Ur Specific [place] 1.015 (1.003-1.030) Urine Protein 30 mg/dl (Negative) mg/dL Urine Glucose (UA) Negative (Negative) mg/dL Urine Ketones Negative (Negative) mg/dL Urine Blood Negative (Negative) Urine Nitrite Negative (Negative) Ur Reducing Substances Not Reportable Urine Bilirubin Negative (Negative) Urine Ictotest Not Reportable Urine Urobilinogen < 2.0 (<2.0) mg/dL Ur Leukocyte Esterase Negative (Negative) Urine WBC (Auto) 1.0 (0.0-6.0) /HPF Urine RBC (Auto) 1.0 (0.0-6.0) /HPF U Epithel Cells (Auto) 4.0 (0-13.0) /HPF Urine Mucus Few /HPF Urine HCG, Qual (Negative) Salicylates (2.8-20.0) mg/dL Urine Opiates Screen Negative Urine Methadone Screen Negative Acetaminophen 5.0 L (10.0-30.0) ug/mL Ur Barbiturates Screen Negative Valproic Acid (50-100) ug/mL Ur Phencyclidine Scrn Negative Ur Amphetamines Screen Negative U Benzodiazepines Scrn Negative [place] (0.0-1.2) mmol/L Urine Cocaine Screen Negative U Marijuana (THC) Screen Negative Drugs of Abuse Note Disclamer SARS-CoV-2 (PCR) (Negative) 02/13/22 02/13/22 Range/Units 07:51 17:59 WBC (4.5-11.0) K/mm3 RBC (3.65-5.03) M/mm3 Hgb (10.1-14.3) gm/dl Hct (30.3-42.9) % MCV (79-97) fl MCH (28-32) pg MCHC (30-34) % RDW (13.2-15.2) % Plt Count (140-440) K/mm3 Lymph % (Auto) (13.4-35.0) % [place] % (Auto) (0.0-7.3) % Eos % (Auto) (0.0-4.3) % Baso % (Auto) (0.0-1.8) % Lymph # (Auto) (1.2-5.4) K/mm3 [place] # (Auto) (0.0-0.8) K/mm3 Eos # (Auto) (0.0-0.4) K/mm3 Baso # (Auto) (0.0-0.1) K/mm3 Seg Neutrophils % (40.0-70.0) % Seg Neutrophils # (1.8-7.7) K/mm3 Sodium (137-145) mmol/L Potassium (3.6-5.0) mmol/L Chloride (98-107) mmol/L Carbon Dioxide (22-30) mmol/L Anion Gap mmol/L BUN (7-17) mg/dL Creatinine (0.6-1.2) mg/dL Estimated GFR ml/min BUN/Creatinine Ratio % Glucose (65-100) mg/dL Calcium (8.4-10.2) mg/dL Urine Color (Yellow) Urine Turbidity (Clear) Urine pH (5.0-7.0) Ur Specific [place] (1.003-1.030) Urine Protein (Negative) mg/dL Urine Glucose (UA) (Negative) mg/dL Urine Ketones (Negative) mg/dL Urine Blood (Negative) Urine Nitrite (Negative) Ur Reducing Substances Urine Bilirubin (Negative) Urine Ictotest Urine Urobilinogen (<2.0) mg/dL Ur Leukocyte Esterase (Negative) Urine WBC (Auto) (0.0-6.0) /HPF Urine RBC (Auto) (0.0-6.0) /HPF U Epithel Cells (Auto) (0-13.0) /HPF Urine Mucus /HPF Urine HCG, Qual Negative (Negative) Salicylates (2.8-20.0) mg/dL Urine Opiates Screen Urine Methadone Screen Acetaminophen (10.0-30.0) ug/mL Ur Barbiturates Screen Valproic Acid (50-100) ug/mL Ur Phencyclidine Scrn Ur Amphetamines Screen U Benzodiazepines Scrn [place] (0.0-1.2) mmol/L Urine Cocaine Screen U Marijuana (THC) Screen Drugs of Abuse Note SARS-CoV-2 (PCR) Negative (Negative)
[2022-02-16] MEDS: clonazePAM 0.5 MG TAB PO SCH ×2 (04:47→09:45)
[2022-02-16] MEDS: QUEtiapine 200 MG TAB PO SCH ×2 (04:47→09:45)
[2022-02-16] MEDS: LITHIUM CARBONATE ER 450 MG TAB PO SCH ×2 (04:47→09:45)
[2022-02-16] MEDS: BENZTROPINE 0.5 MG TAB PO SCH ×2 (04:47→09:45)
[2022-02-16] MEDS ORDERED: HALOPERIDOL LACTATE 5 MG/1 ML INJ IM NR (09:24)
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
--- NOTE | 2022-02-17 10:32 | Progress Note ---
Subjective - Reason for Consult Consult date: 02/17/22 Reason for consult: psychosis - Chief Complaint Chief complaint: The patient was seen today. She is still nonsensical and disorganized. She is standing in the argueta with no pants on. I ask the patient how she was feeling. The patient is is talking about "praise God, the Holy Ghost, God [phone] [id number] me, and pink panties." She says she lives at [facility] and her short term goal is to read the new's paper. REVIEW OF SYSTEMS Constitutional: Negative for weight loss ENT: Negative for stridor Respiratory: Negative for cough or hemoptysis All other systems reviewed and are negative MENTAL STATUS General Appearance and Behavior: age appropriate, good eye contact, hyperactive, loud, cooperative Cooperation: Cooperative Psychomotor Behavior: within normal limits Mood: good Affect and affective range: Congruent with stated mood Thought Process: flight of ideas, circumstantial, illogical Thought Content: delusions, hallucinations Speech: loud, nonsensical Suicidal Ideation: Denies Homicidal Ideation: Denies HI Hallucinations: Yes Delusions: Yes, grandiose Impulse Control: Limited Insight and Judgment: Limited Memory: Limited Attention: Distracted Orientation: alert and oriented Diagnoses: Schizophrenia Treatment Plan 1013 Haldol 5mg IM x one Now Klonopin 0.25mg po BID x 3 days [place] 450mg po BID Increase Seroquel 300mg po BID Medical: per primary Disposition: recommend acute psychiatric treatment Will follow. Thanks Case staffed with Dr. Martin Mental Status Exam - Vital signs Last Vital Signs Temp 99.0 F 02/17/22 03:45 Pulse 91 H 02/17/22 03:45 Resp 18 02/17/22 03:45 BP 137/89 02/17/22 03:45 Pulse Ox 98 02/17/22 03:45
[2022-02-17] MEDS ORDERED: QUEtiapine 100 MG TAB PO SCH (11:00)
--- NOTE | 2022-02-17 11:14 | Emergency Department Report ---
Blank Doc - Documentation Documentation: Chart reviewed. Patient still exhibiting psychosis as per nurses note and psy chiatric nurse practitioner note. Vital signs in normal range. Patient tolerating p.o. medication. Patient remains on 1013 awaiting placement. COVID test negative
[2022-02-17] MEDS: LITHIUM CARBONATE ER 450 MG TAB PO SCH (12:03)
[2022-02-17] MEDS: BENZTROPINE 0.5 MG TAB PO SCH (12:03)
[2022-02-17] MEDS: clonazePAM 0.5 MG TAB PO SCH (12:03)
[2022-02-17 14:00] VITALS: BP 142/89
== END 2022-02-17 14:00 ==
LOC: EEVIPCON 20:19 → ED 20:19
DX: R41.82 Altered mental status, unspecified (principal); R45.6 Violent behavior; F20.9 Schizophrenia, unspecified; F31.9 Bipolar disorder, unspecified
CPT/HCPCS: 36415; 80048; 80164; 80178; 85025; 96372; 99285; J1200; J1630; J2060; J3486; 80320; G0480